=== PATIENT | male | born 1940 | race Caucasian/White ===

== ENCOUNTER → 2017-05-10 12:50 | Outpatient (POV) | payer MEDICARE, SELFPAY ==
[2017-05-10 13:21] VITALS: BP 106/89; PULSE 81; RESP 20; O2SAT 92; BMI 31.5
--- NOTE | 2017-05-10 13:34 | HMH.PAINSOAP ---
[facility] Pain Management SOAP Note Subjective:: patient is a pleasant 76-year-old white male who presents today to discuss his recent onset of stiffness. Patient has an intrathecal pain pump with Dilaudid 2 mg/mL concentration and going at 0.18 mg per day. Patient states his pain is well controlled and he is not having any increase in pain. Patient does state lately over the last month with the weather change he is noticed some more joint stiffness and muscle stiffness. He has not had physical therapy in a while. Patient is also on flomax for urinary hesitancy. Patient states that this is helping greatly we will continue to monitor this. It is also on alprazolam 1 mg 4 times daily. Patient states he takes 2 mg prior to bed and 2 mg in the morning. I discussed that this may be part of his difficulty getting up and moving around. ROS General: no recent weight change, no fever, no sleep disturbances Respiratory: no cough, no shortness of air, no recurring pulmonary infections Cardiovascular/Peripheral Vascular: No chest pain, No palpitations, no edema, no shortness of breath. Gastrointestinal: no incontinence, normal bowel movements reported Genitourinary: no incontinence Musculoskeletal: Back pain Psychiatric: normal mood/ affect Neurological: Patient does have numbness in his left hand due to neuropathy Objective:: Physical Exam General: Alert and oriented x3, no acute distress, pleasant and cooperative, [on room air] Lungs: Resps E/U, Symmetrical chest expansion, Musculoskeletal: Flexion and extension of lumbar spine somewhat guarded secondary to pain, deep tendon reflexes normal, strength in upper and lower extremities [5/5], [abnormal gait noted] Neurological: speech clear, blender laborer equal, no gross sensory deficits Assessment:: Degenerative disc disease lumbar spine with lumbar radiculopathy Plan:: We will plan on setting this patient up with physical therapy in the future for a home stretching regimen. We will not make any changes to his pump today. We discussed about the need to get up and move and stay active. We will give him diclofenac 75 mg 1 p.o. twice daily. He will continue his Flomax 0.8 mg daily. We are just scheduled to refill his pump on Wednesday. We will follow-up with him at that time. This note was dictated using voice recognition software and may contain errors or omissions
--- NOTE | 2017-05-10 13:37 | P.CONS_ITS ---
[facility] Pain Management SOAP Note Subjective:: patient is a pleasant 76-year-old white male who presents today to discuss his recent onset of stiffness. Patient has an intrathecal pain pump with Dilaudid 2 mg/mL concentration and going at 0.18 mg per day. Patient states his pain is well controlled and he is not having any increase in pain. Patient does state lately over the last month with the weather change he is noticed some more joint stiffness and muscle stiffness. He has not had physical therapy in a while. Patient is also on flomax for urinary hesitancy. Patient states that this is helping greatly we will continue to monitor this. It is also on alprazolam 1 mg 4 times daily. Patient states he takes 2 mg prior to bed and 2 mg in the morning. I discussed that this may be part of his difficulty getting up and moving around. ROS General: no recent weight change, no fever, no sleep disturbances Respiratory: no cough, no shortness of air, no recurring pulmonary infections Cardiovascular/Peripheral Vascular: No chest pain, No palpitations, no edema, no shortness of breath. Gastrointestinal: no incontinence, normal bowel movements reported Genitourinary: no incontinence Musculoskeletal: Back pain Psychiatric: normal mood/ affect Neurological: Patient does have numbness in his left hand due to neuropathy Objective:: Physical Exam General: Alert and oriented x3, no acute distress, pleasant and cooperative, [ on room air] Lungs: Resps E/U, Symmetrical chest expansion, Musculoskeletal: Flexion and extension of lumbar spine somewhat guarded secondary to pain, deep tendon reflexes normal, strength in upper and lower extremities [5/5], [abnormal gait noted] Neurological: speech clear, 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 We will not make any changes to his pump today. We discussed about the need to get up and move and stay active. We will give him diclofenac 75 mg 1 p.o. twice daily. He will continue his Flomax 0.8 mg daily. We are just scheduled to refill his pump on Wednesday. We will follow-up with him at that time. This note was dictated using voice recognition software and may contain errors or omissions
--- NOTE | 2017-05-10 15:18 | PC.PHONENOTE ---
called in Rx for flomax 0.4mg daily with 2 refills and dicolfenac 75mg BID with 1 refill to pt pharmacy per provider order
== END ==
PROVIDERS: Family Provider Internal Medicine Adolescent Medicine; PCP Internal Medicine Adolescent Medicine; Visit Provider Clinical Nurse Specialist Family Health
DX: M51.16 Intervertebral disc disorders with radiculopathy, lumbar region (principal)
CPT/HCPCS: 99212

== ENCOUNTER → 2017-05-14 09:53 | Day surgery (SDC) | payer MEDICARE, SELFPAY ==
[2017-05-14 10:06] VITALS: BP 145/1; PULSE 79; RESP 19; TEMP 36.6; O2SAT 94; BMI 37.6
--- NOTE | 2017-05-14 11:37 | HMH.PMPROC ---
- Procedure Date: 05/14/17 Time: 11:37 Anesthesiologist:: Tremayne Loyola MD Complications:: None Pre-procedure Diagnosis:: Degenerative disc disease of lumbar spine with lumbar radiculopathy symptoms Post-procedure Diagnosis:: Same Indications for Procedure:: This patient is a pleasant 76-year-old white male who we are treating for low back pain with lumbar radiculopathy symptoms. He has had some decrease mobility and muscle stiffness recently. He is currently on a intrathecal pump of Dilaudid 2 mg per male currently going at 0.18 mg per day. He is doing well with his pain control. We will refill his pump and continue him on Dilaudid at 0.18 mg per day. Procedure Details:: Informed consent was obtained and the risks and benefits of the procedure was explained to the patient. The patient was taken to the procedure room. The pump was interrogated. The area over the pump was prepped using ChloraPrep. The pump was accessed with a 22-gauge needle. Approximately 6 mL's of the intrathecal solution was withdrawn and discarded. The pump was then refilled with 20 mL's of intrathecal Dilaudid 2 mg/mL. The pump was interrogated and the infusion was increased to 0.2 mg per day. The patient tolerated the procedure well with no complication. Plan and Disposition:: We will follow-up with him at his next pump refill. If he has any problems or questions he is to call us in the pain clinic. He is to continue with his diclofenac and muscle relaxants.
[2017-05-14 11:41] VITALS: BP 148/95; PULSE 86; RESP 18; O2SAT 92
[2017-05-14 11:42] VITALS: BP 132/96
[2017-05-14 11:59] VITALS: BP 168/93; PULSE 79; RESP 18; TEMP 36.6; O2SAT 95
[2017-05-14 15:30] LABS: Amphetamine/Metha Screen,Urine Negative ng/mL (<1000); Barbiturates Screen,Urine Negative ng/mL (<200); Benzodiazepines Screen,Urine Positive ng/mL (200); Cannabinoid Screen,Urine Negative ng/mL (<50); Cocaine Screen,Urine Negative ng/g (<300); Methadone Screen,Urine Negative ng/mL (<300); Opiate Screen,Urine Negative ng/mL (<300); Phencyclidine Screen,Urine Negative ng/mL (<25)
[2017-05-20 11:50] LABS: Opiates Negative (Cutoff=100)
--- NOTE | 2017-07-13 14:39 | PC.PHONENOTE ---
07/12/17-called in Rx for Flomax 0.4mg daily with no refills per provider order. also ordered to refer pt to urology for ongoing urinary retention, hesitancy
--- NOTE | 2017-07-13 14:40 | PC.PHONENOTE ---
pt's called, requested to have urology consult put on hold d/t financial reasons. instructed pt's spouse to contact PCP for assessment of ongoing urinary hesitancy/retention since unable to see Urologist. Informed Mrs. Grover that this office would not prescribe Flomax after this month. understanding verbalized
== END ==
PROVIDERS: Family Provider Internal Medicine Adolescent Medicine; PCP Internal Medicine Adolescent Medicine; Visit Provider Anesthesiology
DX: M51.16 Intervertebral disc disorders with radiculopathy, lumbar region (principal)
CPT/HCPCS: 80305; 80361; 80365; 95991; G0480

== ENCOUNTER → 2017-11-26 10:48 | Outpatient (POV) | payer MEDICARE, SELFPAY ==
[2017-11-26 10:52] VITALS: BP 161/80; PULSE 84; RESP 18; O2SAT 93; BMI 393763.6
--- NOTE | 2017-11-26 11:32 | HMH.PMPROC ---
- Procedure Date: 11/26/17 Time: 11:32 Anesthesiologist:: Tremayne Loyola MD Complications:: None Pre-procedure Diagnosis:: Degenerative disc disease of lumbar spine with lumbar radiculopathy symptoms Post-procedure Diagnosis:: Same Indications for Procedure:: This patient is a pleasant 76-year-old white male who we are treating for low back pain with lumbar radiculopathy symptoms. He currently has an intrathecal Dilaudid pain pump 0.2 mg per day. He was doing well with his pump up until recently when he started to have some increased pain with the weather changes and increase activity. We will increase his intrathecal Dilaudid infusion today. He does have an antalgic gait. Motor strength of lower extremities is 5/5. There is no gross sensory deficit. Procedure Details:: Intrathecal pain pump interrogation and adjustment Informed consent was obtained and the risk and benefits of the procedure was explained to the patient. Patient was taken to the procedure room. The pump was interrogated. Intrathecal Dilaudid infusion was increased to 0.3 mg per day from 0.2 mg per day. Patient tolerated the procedure well with no complications. Plan and Disposition:: We will follow-up with this patient at his next pump refill. This is scheduled next month. If he has any problems or questions she is to call us in the pain clinic
== END ==
PROVIDERS: Family Provider Internal Medicine Adolescent Medicine; PCP Internal Medicine Adolescent Medicine; Visit Provider Anesthesiology
DX: M51.16 Intervertebral disc disorders with radiculopathy, lumbar region (principal)
CPT/HCPCS: 62368

== ENCOUNTER → 2018-04-26 09:58 | Outpatient (CLI) | payer MEDICARE, SELFPAY ==
[2018-04-26 10:29] LABS: Blood Urea Nitrogen 19 mg/dL (7-18); Creatinine,Serum 1.05 mg/dL (0.70-1.30); Estimated Glomerular Filt Rate 68 ml/min (>60); GFR (African American) 83 ML/MIN (>60)
--- NOTE | 2018-04-26 10:30 | CT_ITS ---
CT head/brain wo con HISTORY: Comminuted impairment, dementia, confusion, altered mental status, ITS.REASON: COGNITIVE IMPAIRMENT ORDERING PHYSICIAN: Sam Jimenez MD PATIENT AGE: 77 years COMPARISON: None TECHNIQUE: Axial images obtained without contrast. Brain and bone windows reviewed. All CT scans at the facility use one or more dose reduction, viz: automated exposure control, ma/kV adjustment per patient size (including targeted exams where dose is matched to indication, i.e. head), or iterative reconstruction technique. FINDINGS: No midline shift, mass effect, intracranial hemorrhage, hydrocephalus, or extra-axial fluid collection is evident. There are involutional changes of age with mild atrophy and mild periventricular ischemic gliotic change.The calvarium has an unremarkable appearance. No mastoid effusion. No sinus air-fluid levels.. Mild mucosal thickening involves the frontal sinuses IMPRESSION: Negative unenhanced CT head, no acute intracranial findings
== END ==
PROVIDERS: Visit Provider Internal Medicine Adolescent Medicine
DX: R41.89 Other symptoms and signs involving cognitive functions and awareness (principal)
CPT/HCPCS: 36415; 70450; 82565; 84520

== ENCOUNTER → 2018-05-06 13:28 | Outpatient (CLI) | payer MEDICARE, SELFPAY ==
[2018-05-06 14:04] LABS: Basophils # 0.1 K/mm3 (0-0.2); Basophils % 0.6 % (0.1-2.0); Eosinophils # 0.2 K/mm3 (0.0-0.4); Eosinophils % 2.5 % (0.1-12.0); Hematocrit 42.1 % (42.0-52.0); Lymphocytes # 2.9 K/mm3 (0.7-4.5); Lymphocytes % 36.4 % (10-50); Mean Corpuscular HGB Conc 33.4 g/dL (31.8-35.4); Mean Platelet Volume 7.4 fl (7.4-10.4); Monocytes # 0.5 K/mm3 (0.1-1.0); Monocytes % 6.6 % (1.7-9.3); Neutrophils # 4.3 K/mm3 (1.8-7.8); Neutrophils % 53.9 % (37.0-80.0); Platelet Count 236 K/mm3 (142-424); Red Blood Count 4.67 M/mm3 (4.60-6.20); Red Cell Distribution Width 13.4 % (11.5-17.5)
[2018-05-06 14:53] LABS: Alanine Aminotransferase 48 U/L (12-78); Albumin Level 3.6 gm/dL (3.4-5.0); Alkaline Phosphatase 95 U/L (46-116); Anion Gap 14.4 mEq/L (5-15); Aspartate Amino Transferase 36 U/L (15-37); Bilirubin,Total 0.3 mg/dL (0.2-1.0); Blood Urea Nitrogen 19 mg/dL (7-18); Calcium 9.4 mg/dL (8.5-10.1); Carbon Dioxide 30 mmol/L (21.0-32.0); Chloride 101 mmol/L (98-107); Creatinine,Serum 1.01 mg/dL (0.70-1.30); Estimated Glomerular Filt Rate 72 ml/min (>60); GFR (African American) 87 ML/MIN (>60); Globulin 3.6 gm/dl (1.3-3.2); Glucose 112 mg/dL (74-106); Potassium 4.4 mmoL/L (3.5-5.1); Sodium 141 mmol/L (136-145); Thyroid Stimulating Hormone 8.03 uIU/ml (0.358-3.740); Total Protein,Serum 7.2 gm/dL (6.4-8.2)
[2018-05-10 09:53] LABS: Rapid Plasma Reagin Ab Titer Non Reactive (NonRea<1:1); Vitamin B12 242 pg/mL (232-1245)
== END ==
PROVIDERS: Visit Provider Internal Medicine Adolescent Medicine
DX: R41.89 Other symptoms and signs involving cognitive functions and awareness (principal); Z79.899 Other long term (current) drug therapy
CPT/HCPCS: 36415; 80053; 82607; 84443; 85025; 86592

== ENCOUNTER 2019-09-05 13:01 | Day surgery (SDC) | payer MEDICARE, SELFPAY ==
[2019-09-05 13:22] VITALS: BP 154/89; PULSE 97; RESP 18; TEMP 36.4; O2SAT 96; BMI 46.2
--- NOTE | 2019-09-05 13:39 | HMH.PMPROC ---
- Procedure Date: 09/05/19 Time: 13:39 Anesthesiologist:: Lisa Jose APRN Complications:: None Pre-procedure Diagnosis:: Degenerative disc disease lumbar spine with lumbar radiculopathy Post-procedure Diagnosis:: Same Indications for Procedure:: Patient is a pleasant 78-year-old white male who presents today for intrathecal pain pump refill and reprogram. He is currently on an intrathecal infusion of 0.44 mg/day of Dilaudid. Patient [facility] #[id number] reviewed and appropriate. Patient rates his pain today 5 out of 10. Mostly in his back and legs. 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 The patient was taken to the procedure room where noninvasive monitoring was placed including noninvasive blood pressure cuff and pulse oximeter. Patient's pump was interrogated. The area over the pump was cleansed with chlorhexidine as a cleansing solution. In sterile fashion the pump was accessed with a 22-gauge needle. Approximately 9 mL's were removed of the pump solution and discarded appropriately. The pump was then refilled with 20 mL's of Dilaudid 5 mg/mL. The needle was withdrawn and a bandage was placed over the puncture site. The infusion rate was reprogrammed to continue at 0.44 mg/day. The patient tolerated the procedure well. Plan and Disposition:: I will see the patient at his next physical pain pump refill and reprogram he has been instructed to call the office if he has any issues prior to his next appointment. Dr. Loyola has reviewed this note and agrees with this plan of care. This note was dictated using voice recognition software and may contain errors or omissions
[2019-09-05 13:42] VITALS: BP 142/89; PULSE 68; RESP 18; O2SAT 96
[2019-09-05 13:43] VITALS: BP 145/89; PULSE 70; RESP 18; O2SAT 98
[2019-09-05 14:00] VITALS: BP 138/75; PULSE 67; RESP 20; O2SAT 96
== END 2019-09-05 14:01 | disposition home or self-care (01) ==
LOC: SC.PAINP 13:03
PROVIDERS: PCP Internal Medicine Adolescent Medicine; Visit Provider Clinical Nurse Specialist Family Health
DX: M51.16 Intervertebral disc disorders with radiculopathy, lumbar region (principal)
CPT/HCPCS: 95991

== ENCOUNTER 2020-01-08 13:19 | Day surgery (SDC) | payer MEDICARE, SELFPAY ==
[2020-01-08 13:49] VITALS: BP 147/63; PULSE 69; RESP 18; TEMP 36.7; O2SAT 95; BMI 47.0
[2020-01-08 14:06] VITALS: BP 172/84; PULSE 68; RESP 18; O2SAT 98
[2020-01-08 14:08] VITALS: BP 172/88; PULSE 68; RESP 18; O2SAT 92
--- NOTE | 2020-01-08 14:17 | P.PCN_ITS ---
- Procedure Date: 01/08/20 Time: 14:17 Anesthesiologist:: Lisa Jose APRN Complications:: None Pre-procedure Diagnosis:: Degenerative disc disease lumbar spine lumbar radiculopathy Post-procedure Diagnosis:: Same Indications for Procedure:: Patient is a pleasant 79-year-old white male who presents today for intrathecal pain pump refill and reprogram. Patient overall doing well rating his pain today a 4 out of 10. Patient states he has some increased pain with the weather change. But overall his pain is typically a 2 out of 10. Patient would like a slight increase of his intrathecal infusion of 0.44 mg of Dilaudid a day. He denies side effects to his medication. Isidro and drug screens reviewed. Physical Exam General: Alert and oriented x3, no acute distress, pleasant and cooperative, [on room air] Lungs: Resps E/U, Symmetrical chest expansion, Eyes: PERRL Musculoskeletal: Flexion and extension of lumbar spine somewhat guarded secondary to pain, deep tendon reflexes normal, strength in upper and lower extremities [5/5], [abnormal gait noted] Neurological: speech clear, dictating machine transcriber equal, no gross sensory deficits Procedure Details:: Informed consent was obtained and the risk and benefits of the procedure were explained to the patient. The patient was taken to the procedure room where noninvasive monitoring was placed including noninvasive blood pressure cuff and pulse oximeter. Patient's pump was interrogated. The area over the pump was cleansed with chlorhexidine as a cleansing solution. In sterile fashion the pump was accessed with a 22-gauge needle. Approximately 9 mL's were removed of the pump solution and discarded appropriately. The pump was then refilled with 20 mL's of Dilaudid 5 mg/mL. The needle was withdrawn and a bandage was placed over the puncture site. The infusion rate was reprogrammed to 0.48 mg/day. The patient tolerated the procedure well. Plan and Disposition:: I will follow-up with the patient at his next intrathecal pain pump refill and reprogram he has been instructed to call the office if he has any issues prior to his next appointment. Dr. Loyola has reviewed this note and agrees with this plan of care. This note was dictated using voice recognition software and may contain errors or omissions
[2020-01-08 14:30] VITALS: BP 149/72; PULSE 63; RESP 18; O2SAT 95
== END 2020-01-08 14:30 | disposition home or self-care (01) ==
PROVIDERS: PCP Internal Medicine Adolescent Medicine; Visit Provider Clinical Nurse Specialist Family Health
DX: M51.16 Intervertebral disc disorders with radiculopathy, lumbar region (principal); Z45.1 Encounter for adjustment and management of infusion pump; E78.5 Hyperlipidemia, unspecified; I10 Essential (primary) hypertension; J45.909 Unspecified asthma, uncomplicated; K21.9 Gastro-esophageal reflux disease without esophagitis; F41.9 Anxiety disorder, unspecified; F32.9 Major depressive disorder, single episode, unspecified; F03.90 Unspecified dementia, unspecified severity, without behavioral disturbance, psychotic disturbance, mood disturbance, and anxiety; Z96.659 Presence of unspecified artificial knee joint; Z88.8 Allergy status to other drugs, medicaments and biological substances; Z79.899 Other long term (current) drug therapy
CPT/HCPCS: 62370

== ENCOUNTER → 2020-04-24 12:35 | Outpatient (CLI) | payer MEDICARE, SELFPAY ==
[2020-04-24 13:10] LABS: Basophils # 0.1 K/mm3 (0-0.2); Basophils % 0.8 % (0.1-2.0); Eosinophils # 0.3 K/mm3 (0.0-0.4); Eosinophils % 3.2 % (0.1-12.0); Hematocrit 48.3 % (42.0-52.0); Hemoglobin 15.6 g/dL (14.1-18.0); Lymphocytes # 2.7 K/mm3 (0.7-4.5); Lymphocytes % 31.5 % (10-50); Mean Corpuscular HGB Conc 32.3 g/dL (31.8-35.4); Mean Corpuscular Hemoglobin 30.3 pg (27.0-31.2); Mean Corpuscular Volume 93.9 fl (80-94); Mean Platelet Volume 8.2 fl (7.4-10.4); Monocytes # 0.4 K/mm3 (0.1-1.0); Monocytes % 5.2 % (1.7-9.3); Neutrophils % 59.3 % (37.0-80.0); Platelet Count 252 K/mm3 (142-424); Red Blood Count 5.14 M/mm3 (4.60-6.20); Red Cell Distribution Width 14.7 % (11.5-17.5); White Blood Count 8.4 K/mm3 (4.8-10.8)
[2020-04-24 13:19] LABS: Hemoglobin A1C 6.5 % (4.0-6.0)
[2020-04-24 13:32] LABS: Chloride 104 mmol/L (98-107); Sodium 140 mmol/L (136-145)
[2020-04-24 13:33] LABS: Potassium 4.6 mmoL/L (3.5-5.1)
[2020-04-24 13:35] LABS: Alanine Aminotransferase 19 U/L (12-78); Albumin Level 4.1 g/dl (3.5-5.0); Albumin/Globulin Ratio 1.2 (1.1-1.8); Alkaline Phosphatase 104 U/L (38-126); Anion Gap 11.6 mEq/L (5-15); Aspartate Amino Transferase 27 U/L (17-59); Bilirubin,Total 0.4 mg/dl (0.2-1.3); Blood Urea Nitrogen 21 mg/dl (9-20); Carbon Dioxide 29 mmol/L (22.0-30.0); Cholesterol 191 mg/dl (140-200); Estimated Glomerular Filt Rate 72 ml/min (>60); GFR (African American) 87 ML/MIN (>60); Globulin 3.4 g/dL (1.3-3.2); Total Protein,Serum 7.5 g/dl (6.3-8.2); Triglycerides 268 mg/dl (30-150); VLDL Cholesterol 54 mg/dL (0-40)
[2020-04-24 13:36] LABS: Calcium 9.4 mg/dl (8.4-10.2); Glucose 138 mg/dl (74-100); HDL Cholesterol 32 mg/dl (40-60)
[2020-04-24 13:47] LABS: Direct LDL Cholesterol 122.49 mg/dL (100-129)
[2020-04-24 14:09] LABS: Thyroid Stimulating Hormone 8.44 uIU/mL (0.465-4.68)
== END ==
PROVIDERS: Visit Provider Internal Medicine Adolescent Medicine
DX: E78.5 Hyperlipidemia, unspecified (principal); E03.9 Hypothyroidism, unspecified; G60.9 Hereditary and idiopathic neuropathy, unspecified; R73.9 Hyperglycemia, unspecified
CPT/HCPCS: 36415; 80053; 80061; 83036; 84443; 85025

== ENCOUNTER 2020-06-17 13:02 | Day surgery (SDC) | payer MEDICARE, SELFPAY ==
[2020-06-17 13:05] VITALS: BP 150/85; PULSE 72; RESP 18; TEMP 35.9; O2SAT 91; BMI 47.0
[2020-06-17 13:26] VITALS: BP 157/89; PULSE 74; RESP 18
[2020-06-17 13:32] VITALS: BP 160/88; PULSE 78; RESP 18; O2SAT 95
--- NOTE | 2020-06-17 13:36 | P.PCN_ITS ---
- Procedure Date: 06/17/20 Time: 13:37 Anesthesiologist:: Lisa Jose APRN Complications:: None Pre-procedure Diagnosis:: Degenerative disc disease lumbar spine lumbar radiculopathy Post-procedure Diagnosis:: Same Indications for Procedure:: Patient is a pleasant 79-year-old white male who presents today for intrathecal pain pump refill and reprogram. He rates his pain a 4 out of 10 overall doing well. Patient does not need any changes to his current infusion of 0.48 mg of Dilaudid a day. Patient denies any side effects. [facility] #[id number] reviewed and appropriate. Procedure Details:: Informed consent was obtained and the risk and benefits of the procedure were explained to the patient. The patient was taken to the procedure room where noninvasive monitoring was placed including noninvasive blood pressure cuff and pulse oximeter. Patient's pump was interrogated. The area over the pump was cleansed with chlorhexidine as a cleansing solution. In sterile fashion the pump was accessed with a 22-gauge needle. Approximately 5 mL's were removed of the pump solution and discarded appropriately. The pump was then refilled with 20 mL's of Dilaudid 5 mg/mL. The needle was withdrawn and a bandage was placed over the puncture site. The infusion rate was reprogrammed to continue at 0.48 mg/day. The patient tolerated the procedure well. Plan and Disposition:: I will see the the patient back at his next intrathecal pain pump refill and reprogram he has been instructed to call the office if he has any issues prior to his next appointment. Dr. Loyola has reviewed this note and agrees with this plan of care. This note was dictated using voice recognition software and may contain errors or omissions
[2020-06-17 13:55] VITALS: BP 140/72; PULSE 18; PULSE 69; O2SAT 92
== END 2020-06-17 13:55 | disposition home or self-care (01) ==
LOC: SC.PAINP 13:04
PROVIDERS: PCP Internal Medicine Adolescent Medicine; Visit Provider Clinical Nurse Specialist Family Health
DX: M51.16 Intervertebral disc disorders with radiculopathy, lumbar region (principal); Z45.1 Encounter for adjustment and management of infusion pump; I10 Essential (primary) hypertension; J45.909 Unspecified asthma, uncomplicated; N40.0 Benign prostatic hyperplasia without lower urinary tract symptoms; K21.9 Gastro-esophageal reflux disease without esophagitis; F41.9 Anxiety disorder, unspecified; F32.9 Major depressive disorder, single episode, unspecified; F03.90 Unspecified dementia, unspecified severity, without behavioral disturbance, psychotic disturbance, mood disturbance, and anxiety; Z88.6 Allergy status to analgesic agent; Z88.8 Allergy status to other drugs, medicaments and biological substances; Z79.899 Other long term (current) drug therapy
CPT/HCPCS: 95991

== ENCOUNTER 2020-10-14 13:14 | Day surgery (SDC) | payer MEDICARE, SELFPAY ==
[2020-10-14 13:17] VITALS: BP 165/84; PULSE 70; RESP 18; TEMP 36.7; O2SAT 96; BMI 47.0
[2020-10-14 13:41] VITALS: BP 174/85; PULSE 65; RESP 18; O2SAT 94
[2020-10-14 13:44] VITALS: PULSE 74; RESP 18; O2SAT 97
--- NOTE | 2020-10-14 14:17 | HMH.PMPROC ---
- Procedure Date: 10/14/20 Time: 14:17 Anesthesiologist:: Nicole Acevedo APRN Complications:: None Pre-procedure Diagnosis:: Degenerative disc disease lumbar spine with lumbar radiculopathy symptoms Post-procedure Diagnosis:: Same Indications for Procedure:: Patient is a pleasant 79-year-old male who presents today for intrathecal pain pump refill and reprogram he is being treated for degenerative disc disease lumbar spine with lumbar radiculopathy symptoms. Patient is currently on Dilaudid at 0.48 mg/day with no side effects. Patient does have a history of dementia and is unable to verify medications or other pertinent information. Patient's Isidro and drug screens have been appropriate. His pain is a 4 out of 10. He does not need any changes at this time. 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 The patient was taken to the procedure room where noninvasive monitoring was placed including noninvasive blood pressure cuff and pulse oximeter. Patient was placed prone position fluoroscopy was used to access the pump site patient's pump was interrogated. The area over the pump was cleansed with chlorhexidine as a cleansing solution. In sterile fashion the pump was accessed with a 22-gauge needle. Approximately 10 mls of the pump solution was removed and discarded appropriately. The pump was then refilled with 20 mL's of Dilaudid 5 mg/mL. The needle was withdrawn and a bandage was placed over the puncture site. The infusion rate was reprogrammed at Dilaudid 0.48 mg/day. The patient tolerated well with no complication. Plan and Disposition:: We will see the patient back at the next refill. If the patient has any questions, contact the clinic. Patient has been instructed to contact the clinic with any concerns before the next appointment. Dr. Loyola has reviewed this note and agrees with this plan of care. This note was dictated using voice recognition software and make contain errors or omissions.
[2020-10-14 14:37] VITALS: BP 126/72; PULSE 70; RESP 20; O2SAT 96
== END 2020-10-14 14:38 | disposition home or self-care (01) ==
LOC: SC.PAINP 13:14
PROVIDERS: PCP Internal Medicine Adolescent Medicine; Visit Provider Clinical Nurse Specialist Family Health
DX: M51.16 Intervertebral disc disorders with radiculopathy, lumbar region (principal); Z45.1 Encounter for adjustment and management of infusion pump
CPT/HCPCS: 76000; 95991

== ENCOUNTER → 2020-11-13 12:39 | Outpatient (CLI) | payer MEDICARE, SELFPAY ==
[2020-11-13 13:26] LABS: Basophils # 0.1 K/mm3 (0-0.2); Basophils % 0.6 % (0.1-2.0); Eosinophils # 0.3 K/mm3 (0.0-0.4); Eosinophils % 2.8 % (0.1-12.0); Hematocrit 45.1 % (42.0-52.0); Hemoglobin 14.8 g/dL (14.1-18.0); Lymphocytes # 2.8 K/mm3 (0.7-4.5); Lymphocytes % 31.3 % (10-50); Mean Corpuscular HGB Conc 32.7 g/dL (31.8-35.4); Mean Corpuscular Hemoglobin 30.4 pg (27.0-31.2); Mean Corpuscular Volume 92.8 fl (80-94); Mean Platelet Volume 8.3 fl (7.4-10.4); Monocytes # 0.4 K/mm3 (0.1-1.0); Monocytes % 4.5 % (1.7-9.3); Neutrophils # 5.4 K/mm3 (1.8-7.8); Neutrophils % 60.7 % (37.0-80.0); Platelet Count 291 K/mm3 (142-424); Red Blood Count 4.87 M/mm3 (4.60-6.20); Red Cell Distribution Width 13.6 % (11.5-17.5); White Blood Count 8.9 K/mm3 (4.8-10.8)
[2020-11-13 14:26] LABS: Alanine Aminotransferase 18 U/L (12-78); Albumin Level 4.2 g/dl (3.5-5.0); Albumin/Globulin Ratio 1.4 (1.1-1.8); Alkaline Phosphatase 92 U/L (38-126); Anion Gap 14.5 mEq/L (5-15); Aspartate Amino Transferase 25 U/L (17-59); Bilirubin,Total 0.5 mg/dl (0.2-1.3); Blood Urea Nitrogen 17 mg/dl (9-20); Calcium 9.2 mg/dl (8.4-10.2); Carbon Dioxide 29 mmol/L (22.0-30.0); Chloride 99 mmol/L (98-107); Chol/HDL Ratio 6.2 (1-3.5); Cholesterol 204 mg/dl (140-200); Estimated Glomerular Filt Rate 93 ml/min (>60); GFR (African American) 113 ML/MIN (>60); Globulin 3.1 g/dL (1.3-3.2); Glucose 109 mg/dl (74-100); HDL Cholesterol 33 mg/dl (40-60); Potassium 4.5 mmoL/L (3.5-5.1); Sodium 138 mmol/L (136-145); Total Protein,Serum 7.3 g/dl (6.3-8.2); Triglycerides 260 mg/dl (30-150); VLDL Cholesterol 52 mg/dL (0-40)
[2020-11-13 14:37] LABS: Direct LDL Cholesterol 119.64 mg/dL (100-129)
== END ==
PROVIDERS: Visit Provider Internal Medicine Adolescent Medicine
DX: G60.9 Hereditary and idiopathic neuropathy, unspecified (principal); E03.9 Hypothyroidism, unspecified; E78.5 Hyperlipidemia, unspecified
CPT/HCPCS: 36415; 80053; 80061; 84443; 85025

== ENCOUNTER 2021-02-04 13:05 | Day surgery (SDC) | payer MEDICARE, SELFPAY ==
[2021-02-04 13:13] VITALS: BP 136/69; PULSE 72; RESP 18; TEMP 36.3; O2SAT 90; BMI 47.0
--- NOTE | 2021-02-04 13:25 | HMH.PMPROC ---
- Procedure Date: 02/04/21 Time: 13:25 Anesthesiologist:: Nicole Acevedo APRN Complications:: None Pre-procedure Diagnosis:: Degenerative disc disease lumbar spine with lumbar radiculopathy symptoms Post-procedure Diagnosis:: Same Indications for Procedure:: Patient is an 80-year-old white male who presents today for intrathecal pain pump refill and reprogram. She is complaining of bilateral shoulder pain today with inability to raise arms above head. He says he cannot lift any objects without having significant pain in the shoulders. Is also complaining of bilateral knee pain as well as sloughing of skin bilateral lower extremities. She has not seen any providers regarding sloughing of skin. He would like a dermatology referral we will get him referred for bilateral lower extremity dermatitis. We will also order x-rays bilateral shoulders. He is currently on Dilaudid on 0.48 mg/day and denies any side effects. He would like an increase today. He says weather has worsened his pain. He rates his pain a 6 out of 10. He was also started on a CPAP recently and says that the he has had difficulty using CPAP. Physical exam General: Alert and oriented x3, no acute distress, pleasant and cooperative Lungs: Respirations even and unlabored, symmetrical chest expansion Eyes: PERRL Musculoskeletal: Flexion and extension of lumbar and cervical [spine] somewhat guarded secondary to pain, [antalgic gait noted] Neurological: Speech clear, no gross sensory deficit Procedure Details:: Informed consent was obtained and the risk and benefits of the procedure were explained to the patient. The patient was taken to the procedure room where noninvasive monitoring was placed including noninvasive blood pressure cuff and pulse oximeter. Patient's pump was interrogated. The area over the pump was cleansed with chlorhexidine as a cleansing solution. In sterile fashion the pump was accessed with a 22-gauge needle. Approximately 5 mls of the pump solution was removed and discarded appropriately. The pump was then refilled with 20 mL's of Dilaudid 5 mg per male. The needle was withdrawn and a bandage was placed over the puncture site. The infusion rate was reprogrammed at increased to Dilaudid at 0.52mg/day. The patient tolerated well with no complication. Plan and Disposition:: We will order x-rays of patient's bilateral shoulders due to worsening pain and decreased mobility. We will also get the patient a dermatology consult per request for dermatitis bilateral lower extremities. Risks and benefits of the medication have been explained in detail to the patient. The patient does understand the risk of dependence on the medication when given over a prolonged period. Patient has been advised of risks of oversedation with the prescribed medication. Narcan has been offered to the paitent in the event of oversedation. Patient has been advised that a family member should also be educated regarding administration of Narcan. The patient has been advised to consult with his/her primary care provider and pharmacist regarding drug-drug interaction of medications currently prescribed. Patient has been prescribed a controlled substance after being counseled on the medication, medication safety, and possible side effects. [facility]OTT report has been obtained and reviewed prior to prescription and found to be appropriate. Opioid contract was reviewed and signed by the patient, and that they have agreed to all of the terms set forth by our compliance program. Patient has been instructed to contact the clinic with any concerns before the next appointment. Dr. Loyola has reviewed this note and agrees with this plan of care. This note was dictated using voice recognition software and make contain errors or omissions.
[2021-02-04 13:30] VITALS: BP 166/69; PULSE 74; PULSE 79; RESP 18; O2SAT 90
[2021-02-04 13:47] VITALS: BP 139/70; PULSE 71; RESP 20; O2SAT 90
--- NOTE | 2021-02-04 14:22 | XR_ITS ---
PROCEDURE: XR SHOULDER LT MIN 2V CLINICAL INDICATION: ETHEL SHOULDR PAIN COMPARISON: No exams were available for comparison FINDINGS: No fracture or dislocation. No lytic or blastic change. There is normal mineralization. Mild osteoarthritic change acromioclavicular joint and glenohumeral joint. Small sub cortical cyst just medial to the base of the greater tuberosity. Subacromial stenosis. Other findings:None. IMPRESSION: Osteoarthritic changes with subacromial stenosis Dictated by: Madhu Hendrickson MD 02/05/2021 07:54 Madhu Hendrickson MD in [place] 02/05/2021 07:54
--- NOTE | 2021-02-04 14:22 | XR_ITS ---
PROCEDURE: XR SHOULDER RT MIN 2V CLINICAL INDICATION: ETHEL SHOULDER PAIN COMPARISON: No exams were available for comparison FINDINGS: No fracture or dislocation. No lytic or blastic change. There is normal mineralization. Osteoarthritic change acromioclavicular joint with small osteophytes at the AC joint with hypertrophic changes are present along the inferior aspect the acromion with subacromial stenosis. Other findings:None. Mild osteoarthritic changes of the glenohumeral joint. Cortical irregularity at the greater tuberosity which may be seen with rotator cuff disease. IMPRESSION: Osteoarthritic change AC joint and glenohumeral joint with subacromial stenosis Dictated by: Madhu Hendrickson MD 02/05/2021 07:56 Madhu Hendrickson MD in [facility] 02/05/2021 07:56
== END 2021-02-04 13:48 | disposition home or self-care (01) ==
LOC: SC.PAINP 13:07
PROVIDERS: PCP Internal Medicine Adolescent Medicine; Visit Provider Clinical Nurse Specialist Family Health
DX: M51.16 Intervertebral disc disorders with radiculopathy, lumbar region (principal); M25.511 Pain in right shoulder; M25.512 Pain in left shoulder
CPT/HCPCS: 73030; 99212; G0463

== ENCOUNTER 2021-06-02 13:10 | Day surgery (SDC) | payer MEDICARE, SELFPAY ==
[2021-06-02 13:05] VITALS: BP 165/87; PULSE 74; RESP 20; TEMP 36.5; O2SAT 93; BMI 47.0
[2021-06-02 13:11] VITALS: BP 178/98; BP 180/98; PULSE 70; PULSE 76; RESP 20; O2SAT 98; O2SAT 99
[2021-06-02 13:20] VITALS: BP 154/81; PULSE 70; RESP 20; O2SAT 91
--- NOTE | 2021-06-02 13:23 | HMH.PMPROC ---
- Procedure Date: 06/02/21 Time: 13:37 Anesthesiologist:: Nitin Vital CRNA Complications:: None Pre-procedure Diagnosis:: Disc disease lumbar spine multilevels. Lumbar radiculopathy symptoms. Post-procedure Diagnosis:: Same Indications for Procedure:: Patient is a pleasant 80-year-old white male who presents today for intrathecal pain pump refill and reprogram. Patient is without complaint regarding cervical or lumbar back pain. Patient is currently on Dilaudid 0.52 mg/day. He denies any side effects. Procedure Details:: Details of the procedure were explained to the patient. Informed consent was obtained. Risk and benefits discussed. Patient was taken the procedure room placed in the sitting position on the fluoroscopy table. The area over the intrathecal pump was cleaned using chlorhexidine as a cleansing solution. The was accessed using a 22-gauge needle. 7.2 L was withdrawn and discarded appropriately. The pump was then filled with 20 mL of Dilaudid 5 mg/mL. The needle was withdrawn. Rate was continued at 0.52 mill grams per day. Band-Aid applied. Patient tolerated procedure without difficulty. There were no complications. Plan and Disposition:: Patient will return in 3 months for additional refill.
== END 2021-06-02 13:22 | disposition home or self-care (01) ==
LOC: SC.PAINP 13:11
PROVIDERS: PCP Internal Medicine Adolescent Medicine; Visit Provider Nurse Anesthetist, Certified Registered
DX: M51.16 Intervertebral disc disorders with radiculopathy, lumbar region (principal); Z45.1 Encounter for adjustment and management of infusion pump
CPT/HCPCS: 95991

== ENCOUNTER 2021-09-15 13:03 | Day surgery (SDC) | payer MEDICARE, SELFPAY ==
[2021-09-15 13:19] VITALS: BP 160/80; PULSE 75; RESP 18; TEMP 36.3; O2SAT 92; BMI 43.5
[2021-09-15 13:24] VITALS: BP 185/99; PULSE 85; RESP 20; O2SAT 96
[2021-09-15 13:46] VITALS: BP 161/79; PULSE 72; RESP 20; O2SAT 94
--- NOTE | 2021-09-15 14:06 | HMH.PMPROC ---
- Procedure Date: 09/15/21 Time: 14:06 Anesthesiologist:: ROSANNE Haq Complications:: None Pre-procedure Diagnosis:: Degenerative disc disease of lumbar spine with lumbar radiculopathy symptoms Post-procedure Diagnosis:: Same Indications for Procedure:: Patient is a pleasant 80-year-old male who presents today for intrathecal pain pump refill and reprogram. The patient is being treated for degenerative disease of lumbar spine with lumbar radiculopathy symptoms. Patient is currently being managed with intrathecal Dilaudid 5 mg/mL at a rate of 0.52 mg/day. Patient denies any side effects from this medication. Patient rates pain a 0 out of 10. Drug screen is appropriate. Isidro [id number] with an active morphine equivalent of 0 has been reviewed and is appropriate. Physical exam General: Alert and oriented x3, no acute distress, pleasant and cooperative Lungs: Respirations even and unlabored, symmetrical chest expansion Eyes: PERRL Musculoskeletal: Flexion and extension of lumbar [spine] somewhat guarded secondary to pain, [antalgic gait noted] Neurological: Speech clear, no gross sensory deficit Procedure Details:: Informed consent was obtained and the risk and benefits of the procedure were explained to the patient. The patient was taken to the procedure room where noninvasive monitoring was placed including noninvasive blood pressure cuff and pulse oximeter. Patient's pump was interrogated. The area over the pump was cleansed with chlorhexidine as a cleansing solution. [Fluoroscopy was used to access the pump]. In sterile fashion the pump was accessed with a 22-gauge needle. Approximately 7 mls of the pump solution was removed and discarded appropriately. The pump was then refilled with 20 mL's of Dilaudid 5 mg/mL. The needle was withdrawn and a bandage was placed over the puncture site. The infusion rate was reprogrammed and continued of Dilaudid 0.52 mg/day. The patient tolerated well with no complication. Plan and Disposition:: During the procedure, patient's blood pressure was elevated around 180s. Patient will follow-up with Dr. vAina in regards to this. We will see the patient back in the clinic at the next intrathecal refill. Patient has been instructed to contact the clinic with any concerns before the next appointment. Dr. Loyola has reviewed this note and agrees with this plan of care. This note was dictated using voice recognition software and make contain errors or omissions.
== END 2021-09-15 13:47 | disposition home or self-care (01) ==
LOC: SC.PAINP 13:06
PROVIDERS: PCP Internal Medicine Adolescent Medicine; Visit Provider Student in an Organized Health Care Education/Training Program
DX: M51.16 Intervertebral disc disorders with radiculopathy, lumbar region (principal)
CPT/HCPCS: 62370

== ENCOUNTER 2021-12-16 12:24 | Day surgery (SDC) | payer MEDICARE, SELFPAY ==
[2021-12-16 12:43] VITALS: BP 143/60; PULSE 81; RESP 18; TEMP 36.3; O2SAT 93; BMI 47.0
[2021-12-16 12:56] VITALS: BP 197/99; PULSE 85; O2SAT 97
[2021-12-16 12:59] VITALS: BP 197/99; PULSE 85; RESP 18; O2SAT 97
--- NOTE | 2021-12-16 13:10 | EXP.PAIN.PRO ---
Procedure Date: 12/16/21 Time: 13:00 Anesthesiologist:: Nitin Vital CRNA Complications:: None Pre-procedure Diagnosis:: Degenerative disc disease of lumbar spine with lumbar radiculopathy symptoms Post-procedure Diagnosis:: Same Indications for Procedure:: Patient is a pleasant 81-year-old male who presents today for intrathecal pain pump refill and reprogram. We are currently treating the patient for degenerative disc disease of lumbar spine with lumbar radiculopathy symptoms. We are currently managing him with intrathecal Dilaudid 5 mg/mL at a rate of 0.52 mg/day. Patient denies any side effects of this medication. He states this medication is adequately helping manage his pain. Today he rates his pain a 6 out of 10. He states the pain is primarily in his low back. He denies any new trauma or injury. Physical exam General: Alert and oriented x3, no acute distress, pleasant and cooperative Lungs: Respirations even and unlabored, symmetrical chest expansion Eyes: PERRL musculoskeletal: Flexion and extension of lumbar spine somewhat guarded secondary to pain, antalgic gait noted Neurological: Speech clear, no gross sensory deficit Procedure Details:: Informed consent was obtained and the risk and benefits of the procedure were explained to the patient. The patient was taken to the procedure room where noninvasive monitoring was placed including a noninvasive blood pressure cuff and pulse oximeter. Patient's pump was interrogated. The area over the pump was cleansed with a chlorhexidine as a cleansing solution. In sterile fashion the pump was accessed using a 22-gauge needle. Approximately 11.2 mL of solution was removed and discarded appropriately. The pump was then refilled with 20 mL of Dilaudid 5 mg/mL. The needle was withdrawn and a bandage placed over the puncture site. Infusion rate was reprogrammed and continued at Dilaudid 0.52 mg/day. Patient tolerated well with no complications. Plan and Disposition:: Patient was monitored for short period of time following this procedure and left neurologically intact. We will see the patient back at the next intrathecal pump refill date. Patient has been instructed to contact the clinic with any concerns before the next appointment. Dr. Loyola is reviewed this note and agrees with this plan of care. This note was dictated using voice recognition software and may contain errors or omissions.
[2021-12-16 13:22] VITALS: BP 155/74; PULSE 80; RESP 18; O2SAT 90
== END 2021-12-16 13:23 | disposition home or self-care (01) ==
PROVIDERS: PCP Internal Medicine Adolescent Medicine; Visit Provider Nurse Anesthetist, Certified Registered
DX: M51.16 Intervertebral disc disorders with radiculopathy, lumbar region (principal)
CPT/HCPCS: 62370

== ENCOUNTER 2022-01-13 17:01 | Observation (INO) | payer MEDICARE, SELFPAY ==
[2022-01-13] VITALS (13 sets, daily range): BP systolic 149–188; BP diastolic 74–104; PULSE 73–84; RESP 12–18; TEMP 37.3; O2SAT 85–97; BMI 47.0; BMI 48.0
--- NOTE | 2022-01-13 17:22 | XR_ITS ---
PROCEDURE INFORMATION: Exam: XR Chest Exam date and time: 01/13/2022 5:47 PM Age: 81 years old Clinical indication: Fever; Additional info: Weakness, fever TECHNIQUE: Imaging protocol: Radiologic exam of the chest. Views: 1 view. Portable AP exam 5:52 p.m. COMPARISON: CR XR SHOULDER RT MIN 2V 02/04/2021 2:32 PM FINDINGS: Tubes, catheters and devices: Overlying electronic device monitor electrodes and oxygen tubing. Lungs: Pulmonary vessels appear prominent, likely mildly congested. Slight central peribronchial thickening. No consolidation. Mild focal atelectasis at the right lung base. Pleural spaces: Trace fluid in the minor fissure on the right. No pneumothorax. Heart/Mediastinum: Enlarged cardiac silhouette. Widened superior mediastinal shadows which could be due to vascular ectasia, but underlying mass or adenopathy would also be considerations. This is accentuated on this portable AP exam. Vasculature: Calcified plaque in the aortic arch. Bones/joints: There are spinal degenerative changes, with multilevel disc narrrowing and spondylosis. IMPRESSION: 1. Enlarged cardiac silhouette, likely dilated cardiomyopathy. 2. Pulmonary vessels appear mildly congested. 3. Widened superior mediastinal shadows which could be due to vascular ectasia, but mediastinal adenopathy or mass would be additional considerations. 4. Trace right pleural effusion. 5. Right basilar atelectasis, no definite consolidation.
--- NOTE | 2022-01-13 17:22 | ECG_ITS ---
APPROVED REPORT Exam: Resting ECG HR:81 bpm ECG Measurements Heart Rate 81 AXES AZ 216 P 20 QRSd 102 QRS 74 QT 390 T 41 QTc 427 Conclusion SINUS RHYTHM WITH FIRST DEGREE AV BLOCK WITH OCCASIONAL ECTOPIC PREMATURE COMPLEXES ST DEVIATION AND MODERATE T-WAVE ABNORMALITY, CONSIDER ANTERIOR ISCHEMIA [-0.1+ mV T-WAVE IN V3/V4] ABNORMAL ECG UNCONFIRMED REPORT Electronically signed by : Eris Avina MD 01/15/2022 21:11:53
--- NOTE | 2022-01-13 17:26 | XR_ITS ---
PROCEDURE INFORMATION: Exam: XR Right Knee Exam date and time: 01/13/2022 5:47 PM Age: 81 years old Clinical indication: Injury or trauma; Fall; Blunt trauma; Knee; Right; Additional info: Fall last week, increased pain TECHNIQUE: Imaging protocol: Radiologic exam of the Right knee. Views: 3 views. COMPARISON: No relevant prior studies available. FINDINGS: Bones/joints: Bones appear diffusely demineralized suggesting osteopenia. No focal lytic lesions. Severe narrowing of the medial knee joint space with [id number] appearance, consistent with underlying chondromalacia. Eburnation of the medial tibial plateau, moderate medial periarticular spurs. Lateral tibiofemoral joint space is well preserved with no significant arthritic deformities. Patellofemoral joint space may be slightly narrowed on the lateral view, there is no sunrise view for more accurate evaluation. Small patellofemoral periarticular spurs. Question trace knee joint effusion, lateral view is slightly rotated and suprapatellar bursal fluid not well evaluated. Soft tissues: Subcutaneous soft tissue edema throughout the visualized right lower extremity.No radiopaque foreign bodies seen. No soft tissue emphysema. Vasculature: Some faintly visible vascular calcifications in the popliteal fossa, and atherosclerotic calcified plaques in the proximal calf. Likely tiny phlebolith in the proximal calf. IMPRESSION: 1. No acute fracture or dislocation. 2. 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 3. Osteopenia. 4. Diffuse soft tissue edema. 5. Atherosclerotic disease.
[2022-01-13 18:33] LABS: Microscopic, Urine URINE MICROSCOPIC (MICROSCOPIC)
[2022-01-13 18:48] LABS: Appearance,Urine CLEAR (Clear); Bilirubin,Urine Negative (Negative); Blood, Urine TRACE-I (Negative); Color,Urine YELLOW (Yellow); Glucose,Urine (UA) Negative (Negative); Ketones,Urine Negative (Negative); Leukocyte Esterase,Urine Negative (Negative); Nitrate,Urine Negative (Negative); Protein,Urine 1+ (Negative); Specific Gravity, Urine 1.025 (1.005-1.030); Urobilinogen,Urine 0.2 EU/dl (0.2)
[2022-01-13 18:49] LABS: RBC,Urine Occasional #/hpf (0-3); Squamous Epithelial Cell,Urine Occasional #/hpf (0-5)
--- NOTE | 2022-01-13 19:21 | PC.NURSE ---
COVID swab sent to lab
[2022-01-13 19:31] LABS: Coronavirus 19, PCR Not Detected (NotDetected); Influenza A, PCR Not Detected (NotDetected); Influenza B, PCR Not Detected (NotDetected)
[2022-01-13 19:43] LABS: Basophils # 0.1 K/mm3 (0-0.2); Eosinophils # 0.3 K/mm3 (0.0-0.4); Eosinophils % 2.5 % (0.1-12.0); Hematocrit 47.1 % (42.0-52.0); Lymphocytes # 2.2 K/mm3 (0.7-4.5); Lymphocytes % 21.3 % (10-50); Mean Corpuscular HGB Conc 31.9 g/dL (31.8-35.4); Mean Corpuscular Hemoglobin 30.4 pg (27.0-31.2); Mean Corpuscular Volume 95.2 fl (80-94); Mean Platelet Volume 8.9 fl (7.4-10.4); Monocytes # 0.5 K/mm3 (0.1-1.0); Monocytes % 5.1 % (1.7-9.3); Neutrophils # 7.2 K/mm3 (1.8-7.8); Neutrophils % 70.1 % (37.0-80.0); Platelet Count 247 K/mm3 (142-424); Red Blood Count 4.94 M/mm3 (4.60-6.20); Red Cell Distribution Width 14.2 % (11.5-17.5); White Blood Count 10.3 K/mm3 (4.8-10.8)
[2022-01-13 19:49] LABS: Chloride 101 mmol/L (98-107)
[2022-01-13 19:50] LABS: Sodium 142 mmol/L (136-145)
[2022-01-13 19:52] LABS: Alanine Aminotransferase 19 U/L (12-78); Alkaline Phosphatase 93 U/L (38-126); Aspartate Amino Transferase 32 U/L (17-59); Bilirubin,Total 0.3 mg/dl (0.2-1.3); Blood Urea Nitrogen 15 mg/dl (9-20); Creatinine Clearance Estimated 54 mL/min (50-200); Estimated Glomerular Filt Rate 93 ml/min (>60); GFR (African American) 112 ML/MIN (>60)
[2022-01-13 19:53] LABS: Albumin Level 3.8 g/dl (3.5-5.0); Albumin/Globulin Ratio 1.2 (1.1-1.8); Calcium 8.4 mg/dl (8.4-10.2); Carbon Dioxide 33 mmol/L (22.0-30.0); Globulin 3.1 g/dL (1.3-3.2); Glucose 116 mg/dl (74-100); Lactic Acid 1.2 mmol/L (0.7-2.1); Total Protein,Serum 6.9 g/dl (6.3-8.2)
[2022-01-13 20:05] LABS: Troponin I 0.05 ng/ml (0.00-0.034)
--- NOTE | 2022-01-13 20:37 | PC.NURSE ---
LAB NOTIFIED OF NEW ORDERS
[2022-01-13 20:59] LABS: NT Pro Brain Natriuretic Pep. 6920 pg/mL (0-450)
[2022-01-13 21:06] LABS: T4 (Thyroxine) 8.2 ug/dl (5.53-11.0)
[2022-01-13 21:20] LABS: Thyroid Stimulating Hormone 2.81 uIU/mL (0.465-4.68)
[2022-01-13 22:06] LABS: Troponin I 0.05 ng/ml (0.00-0.034)
--- NOTE | 2022-01-13 22:42 | PC.NURSE ---
DR WERNER FERREIRA
--- NOTE | 2022-01-13 22:50 | XR_ITS ---
PROCEDURE INFORMATION: Exam: XR Pelvis Exam date and time: 01/13/2022 11:07 PM Age: 81 years old Clinical indication: Pelvic pain; Prior surgery; Surgery date: 6+ months; Surgery type: Pain pump; Patient HX: PT fell x days ago, pain worsened in pelvis; Additional info: Fall TECHNIQUE: Imaging protocol: Radiologic exam of the pelvis. Views: 1 or 2 view. COMPARISON: No relevant prior studies available. FINDINGS: Bones/joints: Unremarkable. No acute fracture. Soft tissues: Unremarkable. IMPRESSION: No acute findings.
--- NOTE | 2022-01-13 22:54 | HMH.EDWEAK ---
Discharge Plan Disposition Patient Disposition: Admitted As Inpatient Chief Complaint: Weakness Clinical Impressions Clinical Impression: CHF (congestive heart failure), Hypothyroidism, Obesity, Falls frequently, Dermatitis Discharge ED Provider: Herson Driver Weakness HPI General Chief complaint: Weakness Stated complaint: Weakness Time Seen by Provider: 01/13/22 22:00 Mode of Arrival: EMS Source of Information: Patient, Spouse, EMS and Medical Record Limitations: Physical Limitations Description of Symptoms (Recalled from ER Triage Doc. by RN): Pt to ED per EMS c/o increased extremity swelling, weakness, pain to buttocks r/t rash. also advises that pt fell last week onto his rt knee and has been c/o increased pain since. History of Present Illness HPI Narrative: pt w/o specific c/o but family report has marked swelling over the last few days with dec ambulation and more falls - has hx of pain pump - MD Complaint: generalized weakness Onset (ago): day(s) Duration: constant Location: generalized Migration: none Severity: moderate Associated symptoms: shortness of breath Related Data Home Medications Medication Instructions Recorded Confirmed alprazolam 1 mg tablet 1.5 mg PO BID Depression 05/14/17 01/13/22 hydrochlorothiazide 25 mg tablet 25 mg PO DAILY Hypertension 05/14/17 01/13/22 omeprazole magnesium 20 mg 20 mg PO DAILY GERD 05/14/17 01/13/22 tablet,delayed release (Prilosec OTC) tamsulosin 0.4 mg capsule (Flomax) 0.4 mg PO DAILY bph 05/14/17 01/13/22 carvedilol 6.25 mg tablet 6.25 mg PO BID blood pressure 05/10/18 01/13/22 finasteride 5 mg tablet (Proscar) 5 mg PO DAILY prostate 05/10/18 01/13/22 indomethacin 25 mg capsule 25 mg PO TIDP PRN pain 05/10/18 01/13/22 memantine 14 mg capsule 20 mg PO DAILY dementia 05/10/18 01/13/22 sprinkle,extended release 24hr hydromorphone (PF) 0.5 mg/0.5 mL 0.4 mg IT CONT Pain 09/13/18 01/13/22 injection syringe levothyroxine 25 mcg tablet 25 mcg PO DAILY hypothyroid 09/13/18 01/13/22 diclofenac sodium 75 mg 75 mg PO BID spasms 09/05/19 01/13/22 tablet,delayed release trazodone 100 mg tablet 100 mg PO DAILY . 01/08/20 01/13/22 Allergies Allergy/AdvReac Type Severity Reaction Status Date / Time diclofenac Allergy Verified 12/16/21 12:43 donepezil [From Namzaric] Allergy Verified 12/16/21 12:43 gabapentin Allergy Verified 12/16/21 12:43 memantine [From Namzaric] Allergy Verified 12/16/21 12:43 pregabalin [From Lyrica] Allergy Verified 12/16/21 12:43 ANTIDEPRESSANTS Allergy Severe AGGRESSIVE Uncoded 03/09/17 15:13 [facility] Medical History (Updated 01/13/22 @ 23:10 by Herson Driver MD) Cannot walk Dementia History of back pain Implantable intrathecal infusion pump present Neuropathy Osteoarthritis Surgical History History of hernia repair History of left knee replacement Family History (Updated 12/16/21 @ 12:46 by Renetta Guajardo, JEREL) No significant family history Social History (Updated 12/16/21 @ 12:46 by Renetta Guajardo, RN) Smoking Status: Never smoker second hand exposure: No alcohol intake: never current occupational status: other Travel in the last 8 weeks: None household members: spouse housing: house current occupational exposures/hazards: No caffeine: Yes ROS Obtained: Yes All systems reviewed & no additional complaints except as documented Constitutional Constitutional: Denies fever(s), Denies headache(s) and Reports weakness Eyes Eyes: Denies diplopia ENT Ears, Nose, Mouth, and Throat: Denies headache(s) Cardiovascular Cardiovascular: Denies diaphoresis Respiratory Respiratory: Reports as per HPI, Reports shortness of breath and Denies cough Gastrointestinal Gastrointestingal: Denies abdominal pain Musculoskeletal Musculoskeletal: Reports arthralgias Integumentary/Breasts Skin/Breast: Denies sores Neurologic
[2022-01-14] VITALS (11 sets, daily range): BP systolic 125–199; BP diastolic 67–95; PULSE 73–89; RESP 16–20; TEMP 36.9–37.4; O2SAT 91–96; BMI 46.7
--- NOTE | 2022-01-14 00:12 | PC.NURSE ---
PT BEING TRANSPORTED UP FOR ADMISSION
[2022-01-14 00:47] LABS: Troponin I 0.05 ng/ml (0.00-0.034)
--- NOTE | 2022-01-14 06:46 | PC.NURSE ---
Pt has tolerated 2 L nc well with sats >90%. No c/o voiced to staff. Coy in place draining pale yellow urine. 2950ml OU since receiving lasix. at bedside. Call light within reach.
--- NOTE | 2022-01-14 07:27 | PC.NURSE ---
Pt states she is unaware of husbands meds but will have son bring all his pill bottles this morning.
--- NOTE | 2022-01-14 07:30 | HMH.PHAINT1 ---
Pharmacy Intervention Comments: Home medication reconciliation completed using outpatient pharmacy fill history and interview with patient and .
--- NOTE | 2022-01-14 08:32 | CA_ITS ---
APPROVED REPORT EXAM: Comprehensive 2D, Doppler, and color-flow Echocardiogram Demand Planner: Farhana Birmingham RVT Ht: 5 ft 7 in Wt: 297lbs BSA: 2.39 BP: 175/92 mmHg Indications: CHF,SOA,EDEMA 2D Dimensions LVOT 2.81 cm (M/F) 1.5-2.5 M-Mode Dimensions RVDd 3.74 cm (0.9-2.6) LA Diam 5.38 cm (1.9-4.0) LVDd 5.66 cm (3.5-5.7) Ao Diam 4.02 cm (2.0-3.7) LVDs 3.54 cm (3.5-5.7) IVSd 0.84 cm (0.6-1.1) PWd 0.84 cm (0.6-1.1) EF (Teich) 66.80% FS 37.50% EDV (Teich) 157.50 mL TAPSE 3.01 (<1.7) ESV (Teich) 52.30 mL LV Diastology E Decel Time 150.00 (160-240 msec) E/A Ratio 0.8 MED E' 6.00 (< 7 cm/sec) E'/MED E' Ratio 7.45 (>14) LAT E' 9.10 (<10 cm/sec) E/LAT E' Ratio 4.91 (>14) Aortic Valve AO Peak GR. 4.10 mmHg Mitral Valve MV E Max Britton. 45.00 (40-130 cm/s) MV A Velocity 54.00 (40-130 cm/s) E/A Ratio 0.82 MV Decel. Time 150.00 (160-240 ms) MV PHT 44.00 ms Pulmonary Valve PV Peak Velocity 77.00 (50-150 cm/s) Tricuspid Valve TR P. Velocity 190.00 cm/s RAP Estimate 15.00 mmHg RVSP 29.40 mmHg Left Ventricle Technically difficult study because of the patient factors and poor acoustic windows. Left atrium is mildly enlarged, left ventricle is normal size mild concentric left ventricular hypertrophy, estimated ejection fraction 50% with no regional wall motion abnormality, endocardial surfaces are very poorly visualized. Diastolic parameters are inconclusive. Right Ventricle Right atrium and right ventricle are mildly enlarged with normal contractility. Aortic Valve Aortic valve is minimally thickened and fibrosed there is no aortic stenosis aortic insufficiency. Mitral Valve Mitral valve leaflets are minimally thickened, there is mild mitral regurgitation. Tricuspid Valve Tricuspid valve grossly normal, there is mild tricuspid regurgitation, tricuspid regurgitation jet velocity is inadequate for calculation of the right ventricular systolic pressure. Pulmonic Valve Pulmonic valve is poorly visualized. Great Vessels Aortic root is normal size. Inferior vena cava is poorly visualized. Pericardium No significant pericardial effusion noted. Conclusion 1. Technically difficult study because of the patient factors and poor acoustic windows. 2. Mild biatrial enlargement, normal left ventricular size, mild concentric left ventricular hypertrophy, estimated ejection fraction 50% with no regional wall motion abnormality, endocardial cells are very poorly visualized, diastolic parameters are inconclusive. 3. Mildly enlarged right ventricle with normal contractility. 4. Mild mitral and tricuspid regurgitation. 5. No significant pericardial effusion noted. 6. Inferior vena cava is poorly visualized. Electronically signed by : Siva Holm MD 01/16/2022 15:26:04
--- NOTE | 2022-01-14 08:33 | EXP.HP ---
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 X-rays were negative for fracture of the knee but had significant arthritis. Noted to have pulmonary vascular congestion on chest x-ray, elevated BNP levels and admitted to hospital for IV Lasix and reevaluation of his CHF and other medical problems. [facility] Medical History (Updated 01/14/22 @ 08:39 by Eris Avina MD) Cannot walk Dementia History of back pain Implantable intrathecal infusion pump present Neuropathy Osteoarthritis Surgical History History of hernia repair History of left knee replacement Family History (Updated 12/16/21 @ 12:46 by Renetta Guajardo, JEREL) No significant family history Social History (Updated 01/14/22 @ 00:40 by Kim Carmen RN) Smoking Status: Never smoker second hand exposure: No alcohol intake: never current occupational status: other Travel in the last 8 weeks: None household members: spouse housing: house current occupational exposures/hazards: No caffeine: Yes Review of Systems Review of Systems Review of systems:: pertinent systems reviewed and negative unless documented below Constitutional Constitutional: Denies headache(s) and Reports weakness ENT Ears, Nose, Mouth, and Throat: Denies headache(s) *Neurologic Neurologic: Denies headache(s) and Reports weakness Meds Home Medications and Allergies Home Medications Medication Instructions Recorded Confirmed Type alprazolam 1 mg tablet 2 mg PO BID Anxiety 05/14/17 01/14/22 History tamsulosin 0.4 mg capsule (Flomax) 0.4 mg PO DAILY bph 05/14/17 01/13/22 History carvedilol 6.25 mg tablet 6.25 mg PO BID blood pressure 05/10/18 01/13/22 History indomethacin 25 mg capsule 25 mg PO TIDP PRN pain 05/10/18 01/13/22 History hydromorphone (PF) 0.5 mg/0.5 mL 0.4 mg IT CONT Pain 09/13/18 01/13/22 History injection syringe trazodone 100 mg tablet 100 mg PO HS sleep 01/08/20 01/14/22 History levothyroxine 100 mcg tablet 100 mcg PO DAILY hypothyroidism 01/14/22 01/14/22 History memantine 10 mg tablet 10 mg PO BID memory 01/14/22 01/14/22 History New Prescriptions to Start Prescriptions: Allergies Allergy/AdvReac Type Severity Reaction Status Date / Time diclofenac Allergy Unknown Verified 01/14/22 07:55 allergy reaction donepezil [From Namzaric] Allergy Unknown Verified 01/14/22 07:55 allergy reaction gabapentin Allergy Unknown Verified 01/14/22 07:55 allergy reaction pregabalin [From Lyrica] Allergy Unknown Verified 01/14/22 07:55 allergy reaction ANTIDEPRESSANTS Allergy Severe AGGRESSIVE Uncoded 03/09/17 15:13 Exam Data for Last 24 hours Vital signs and Labs for Last 24 Hours: Temp Pulse Resp BP Pulse Ox 98.9 F 74 17 161/85 H 96 01/14/22 07:34 01/14/22 07:34 01/14/22 07:34 01/14/22 07:34 01/14/22 07:34 Laboratory Results - last 24 hr 01/13/22 00:11: Troponin I 0.05 H 01/13/22 18:08: Urine Color Yellow, Urine Appearance Clear, Urine pH 6.0, Ur Specific [place] 1.025, Urine Protein 1+, Urine Glucose (UA) Negative, Urine Ketones Negative, Urine Blood Trace-i, Urine Nitrate Negative, Urine Bilirubin Negative, Urine Urobilinogen 0.2, Ur Leukocyte Esterase Negative, Urine RBC Occasional, Urine WBC None, Ur Squamous Epith Cells Occasional, Urine Bacteria None 01/13/22 19:15: WBC 10.3, RBC 4.94, Hgb 15.0, Hct 47.1, MCV 95.2 H, MCH 30.4, MCHC 31.9, RDW 14.2, Plt Count 247, MPV 8.9, Neut % (Auto) 70.1, Lymph % (A
--- NOTE | 2022-01-14 09:13 | HMH.OTEV ---
OT Inpatient Evaluation Rehab OT IP Evaluation Start: 01/14/22 08:01 Freq: ONCE Status: Complete Protocol: Document 01/14/22 09:05 ASHLEIGH (Rec: 01/14/22 09:13 [id number] Rehab OT IP Assessment Subjective History Pt oriented x 3 on arrival. Pt agreeable to engage in therapy evaluation. Pt was admitted via ED on 01/13/22 due to frequent falls and functional decline. Pt reports prior to being in the hosptial he was living at home with his . Pt was requiring assistance with dressing (lower body) and sponge bathing. Pt was independent with feeding himself. He was dependent upon his to complete all IADLs such as cleaning, cooking, laundry, grocery shopping, etc. Pt did use a rolling walker during ambulation. Subjective I am weak i think. Objective Patient Orientation Person,Place,Birthday Upper Extremity Gross ROM Min Limitation <25% Shoulder ROM Limitations Muscle Weakness Elbow ROM Limitations Muscle Weakness Wrist Limitations of Range of Motion Muscle Weakness Transfer Training Sit/Stand Transfer Assist Level Minimal x 1 (25% assist) Chair Transfer Assistive Devices Rolling Walker Rehab OT IP prob,goals,plan Problems Date of Evaluation: 01/14/22 OT IP Problems Bed Mobility,Transfers,Balance ,Self care,Safety Rehab Potential Rehab Potential Good Equipment Needs Assistive Devices Rolling / Wheeled Walker Plan OT intervention Plan Bed Mobility,Transfers,Balance ,Self care,Safety,Therapeutic Exercise OT Plan Frequency BID Duration LOS Discharge Goals Bed Mobility Ability Standby Assistance Sit to Stand Chair Transfer Ability Contact Guard/Hand Hold Chair Transfer Ability Contact Guard/Hand Hold Chair Transfer Technique Sit to/from Ambulatory Chair Transfer Assistive Devices Rolling Walker Feeding Ability Assist with Tray Set Up Lower Body Dressing Ability Assistance X1 Upper Body Dressing Ability Standby Assistance Bathing Ability Assistance x1 Performing Toilet Hygie
--- NOTE | 2022-01-14 09:28 | CARE MANAGER ---
After PT eval it appears this patient will need SNF placement, [facility] does not have any beds and [facility] and [facility] do not accept patient insurance. Spoke at length with and she requests [facility] in [place] and [place]. She has a hard time driving far thus she prefers the patient stay close. Information will be faxed to [facility] and [facility] in [place].
--- NOTE | 2022-01-14 09:59 | HMH.PTEV ---
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 Subjective Subjective Pt reports willing to participate - pt alert to name , birthday, and place, not year Rehab PT IP Eval Objective Appearance Patient Behavior Cooperative Patient Orientation Place,Name,Birthday,Situation Difficulty following instructions none Speech Pattern Appropriate Ambulation Patient Able to Ambulate Yes Ambulation Observation IP General Gait Pattern Observation Wide Based Gait,Shuffling Step Ambulation Distance (feet) 4 Ambulation Assistive Device Rolling Walker Ambulation Ability Contact Guard/Hand Hold Balance Ability to Arise Able, uses arms to help Sitting Balance Steady, safe Standing Balance Unsteady Dynamic Sitting Balance Ability Fair Dynamic Standing Balance Ability Poor Transfers Bed Transfer Ability Contact Guard/Hand Hold Chair Transfer Ability Contact Guard/Hand Hold Sit to Stand Bed Transfer Ability Contact Guard/Hand Hold, Minimal x 1 (25% assist) Sit to Stand Chair Transfer Ability Contact Guard/Hand Hold, Minimal x 1 (25% assist) Rehab PT IP prob,goals,plan Problems Date of Evaluation: 01/14/22 PT IP Problems Bed Mobility,Transfers,Gait, Balance,Self care,Safety Rehab Potential Rehab Potential Fair Equipment Needs Assistive Devices Rolling / Wheeled Walker Plan PT Intervention Plan Bed Mobility,Transfers,Gait, Balance,Self care,Safety, Therapeutic Exercise PT Plan Frequency BID Duration LOS Discharge Goals Bed Transfer Ability Contact Guard/Hand Hold Sit to Stand Chair Transfer Ability
--- NOTE | 2022-01-14 14:35 | CARE MANAGER ---
Antonio from [facility] states that they can accept this patient and will begin authorization. Will follow-up with .
--- NOTE | 2022-01-14 15:14 | XR_ITS ---
FINAL REPORT CLINICAL HISTORY: bruising FINDINGS: LEFT FOOT Three views of the left foot demonstrate no acute fracture or dislocation. The bones are osteopenic. The visualized joint spaces are normally aligned. There are mild degenerative changes. There is a plantar calcaneal spur. There is soft tissue swelling of the forefoot. IMPRESSION: Swelling with no acute bony abnormality. Reviewed, Interpreted and Dictated by John Childs III, MD Transcribed by Bronwyn Singh Authenticated and [facility]
--- NOTE | 2022-01-14 20:20 | PC.NURSE ---
pt is AOX4 with episodes of confusion due to his hx of dementia, he did get up to chair with PT x2 assist but required castillo lift to get back into bed because he could not lift himself into bed. he has worn 2lnc for o2 support, pepe cath in place to bedside drain.
[2022-01-15] VITALS: BP 146/85; PULSE 93; RESP 20; TEMP 36.4; O2SAT 94
[2022-01-15 04:00] VITALS: BP 159/82; PULSE 82; RESP 19; TEMP 37.1; O2SAT 92
--- NOTE | 2022-01-15 04:44 | PC.NURSE ---
pt rested well through the night, no acute distress, pt is alert and oriented with mild dementia noted, pt was unable to state the year, lung sounds diminished, 02 sats 92% on 2L pnc, VSS, 2+ generalized edema noted, pepe to bsd with clear yellow urine noted, pt with incontinent loose bm with mild odor noted, pt with red irritated areas under breasts, pannus and groin area with a yeasty smell noted, nystatin oint applied, rectal area with mild redness noted and barrier cream applied, remains at bedside through the night, no other issues or concerns noted at this time.
[2022-01-15 05:50] VITALS: BMI 45.6
[2022-01-15 07:13] LABS: Chloride 93 mmol/L (98-107); Potassium 3.3 mmoL/L (3.5-5.1); Sodium 140 mmol/L (136-145)
[2022-01-15 07:16] LABS: Anion Gap 11.3 mEq/L (5-15); Blood Urea Nitrogen 16 mg/dl (9-20); Carbon Dioxide 39 mmol/L (22.0-30.0); Creatinine Clearance Estimated 52 mL/min (50-200); Estimated Glomerular Filt Rate 108 ml/min (>60); GFR (African American) 131 ML/MIN (>60); Glucose 120 mg/dl (74-100)
[2022-01-15 07:17] LABS: Calcium 8.3 mg/dl (8.4-10.2)
[2022-01-15 07:31] LABS: Basophils # 0.1 K/mm3 (0-0.2); Basophils % 0.8 % (0.1-2.0); Eosinophils # 0.2 K/mm3 (0.0-0.4); Eosinophils % 2.1 % (0.1-12.0); Hematocrit 47.1 % (42.0-52.0); Hemoglobin 15.1 g/dL (14.1-18.0); Mean Corpuscular HGB Conc 32.1 g/dL (31.8-35.4); Mean Corpuscular Hemoglobin 30.4 pg (27.0-31.2); Mean Corpuscular Volume 94.5 fl (80-94); Mean Platelet Volume 8.8 fl (7.4-10.4); Monocytes # 0.5 K/mm3 (0.1-1.0); Monocytes % 5.6 % (1.7-9.3); Neutrophils # 6.6 K/mm3 (1.8-7.8); Neutrophils % 70.5 % (37.0-80.0); Platelet Count 254 K/mm3 (142-424); Red Blood Count 4.98 M/mm3 (4.60-6.20); Red Cell Distribution Width 14.1 % (11.5-17.5); White Blood Count 9.4 K/mm3 (4.8-10.8)
[2022-01-15 08:00] VITALS: BP 136/81; PULSE 69; RESP 18; TEMP 36.4; O2SAT 95
--- NOTE | 2022-01-15 11:11 | EXP.DC.SUM ---
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 X-rays were negative for fracture of the knee but had significant arthritis. Noted to have pulmonary vascular congestion on chest x-ray, elevated BNP levels and admitted to hospital for IV Lasix and reevaluation of his CHF and other medical problems. Hospital Course Hospital Course Hospital Course: Patient was admitted because of profound weakness and dyspnea. Chest x-ray showed evidence of pulmonary venous congestion. He was given Lasix and had a good response to this. Coy catheter was placed because of his severe weakness, inability to stand and void and for wound prevention given his bedbound status. Echocardiogram showed preserved ejection fraction but evidence of diastolic dysfunction. PT and OT recommended that he receive skilled care given his neuropathy, obesity and overall weakness. A bed was found for the patient at the [facility]. To be transferred there today. Please note he will need to receive PT/OT evaluation. He will need to receive a low-fat/low-salt cardiac diet. He will be placed on daily Lasix as noted in the discharge medication list. He will continue his chronic medications as noted. He will have a Coy catheter on transfer to the halfway, I would like to initiate bladder training at the halfway and once he is able to start getting up and walking around the catheter can be discontinued. Please note we will follow him on her regular halfway rounds. Please note that he will need a BMP and CBC on January 19 to monitor kidney function with the initiation of Lasix therapy. Exam Data for Last 24 hours Vital signs and Labs for Last 24 Hours: Temp Pulse Resp BP Pulse Ox FiO2 97.6 F 69 18 136/81 95 2 01/15/22 08:00 01/15/22 08:00 01/15/22 08:00 01/15/22 08:00 01/15/22 08:00 01/14/22 07:45 Laboratory Results - last 24 hr 01/15/22 06:53: WBC 9.4, RBC 4.98, Hgb 15.1, Hct 47.1, MCV 94.5 H, MCH 30.4, MCHC 32.1, RDW 14.1, Plt Count 254, MPV 8.8, Neut % (Auto) 70.5, Lymph % (Auto) 21.0, Pitkin % (Auto) 5.6, Eos % (Auto) 2.1, Baso % (Auto) 0.8, Neut # (Auto) 6.6, Lymph # (Auto) 2.0, Pitkin # (Auto) 0.5, Eos # (Auto) 0.2, Baso # (Auto) 0.1 01/15/22 06:53: Sodium 140, Potassium 3.3 L, Chloride 93 L, Carbon Dioxide 39 H, Anion Gap 11.3, BUN 16, Creatinine 0.70, Estimated Creat Clear 52, Estimated GFR 108, Est GFR ( Amer) 131, Glucose 120 H, Calcium 8.3 L I & O for Last 24 hours: Intake & Output 01/12/22 01/13/22 01/14/22 01/15/22 11:59 11:59 11:59 11:59 Intake Total 300 / 300 720 / 720 Output Total 5650 / 5650 1270 / 1270 Balance -5350 / -5350 -550 / -550 Weight 297 lb 9.985 oz 290 lb 12.635 oz Constitutional Constitutional: no acute distress and morbidly obese *Routine HEENT Exam Head: Present normocephalic Eye: Present EOMI and PERRL ENT: Present mucous membranes moist *Routine Neck Exam Neck: Present supple; Absent lymphadenopathy *Routine Respiratory Exam Comments: Bibasilar crackles in both lungs. Improved over admission *Routine Cardiovascular Exam Cardiovascular: Present RRR *Routine Abdominal Exam Abdominal: Present soft and normoactive bowel sounds; Absent tenderness *Routine Exam Comments: Coy catheter in place draining clear yellow urine *Routine Extremities Exam Extremities: Absent cyanosis, clubbing or edema Comments: 1+ ankle edema. Hands with trace edema. *Routine Skin Exam Skin: Present warm; Absent rash *Routine Neurological Exam Neurological: Present alert Comments: Oriented x2. Little fuzzy about the date given his basel
--- NOTE | 2022-01-15 11:20 | CARE MANAGER ---
Patient has been approved for [facility], he will discharge today.
--- NOTE | 2022-01-15 11:30 | PC.NURSE ---
Home meds returned to pt's
[2022-01-15 11:45] VITALS: BP 136/63; PULSE 77; RESP 18; TEMP 36.7; O2SAT 93
--- NOTE | 2022-01-16 14:03 | CARE MANAGER ---
Spoke with nurse at [facility] for post-discharge phone interview, she states that patient is doing well and has no issues at this time.
== END 2022-01-15 13:10 ==
LOC: ER 22:35 → 2ND 23:10
PROVIDERS: Emergency Medicine; Admitting Provider Family Medicine; Emergency Provider Emergency Medicine; PCP Internal Medicine Adolescent Medicine; Visit Provider Internal Medicine Adolescent Medicine
DX: I11.0 Hypertensive heart disease with heart failure (principal); I50.30 Unspecified diastolic (congestive) heart failure; E03.9 Hypothyroidism, unspecified; R29.6 Repeated falls; Z79.899 Other long term (current) drug therapy; Z20.822 Contact with and (suspected) exposure to COVID-19
CPT/HCPCS: G0378; 36415; 71045; 72170; 73562; 73630; 80048; 80053; 81001; 83605; 83880; 84436; 84443; 84484; 85025; 87040; 93005; 93306; 97116; 97162; 97166; 97530; 97535; 99285; C9803; U0003; U0005

== ENCOUNTER 2023-04-22 11:09 | Emergency (ER) | payer MEDICARE, SELFPAY ==
[2023-04-22] VITALS (14 sets, daily range): BP systolic 133–176; BP diastolic 47–79; PULSE 52–75; RESP 18–24; TEMP 36.7; O2SAT 92–99; BMI 41.0
--- NOTE | 2023-04-22 11:23 | ECG_ITS ---
APPROVED REPORT Exam: Resting ECG HR:70 bpm ECG Measurements Heart Rate 70 AXES QRSd 104 QRS 63 QT 373 T 25 QTc 394 Conclusion SUPRAVENTRICULAR RHYTHM MODERATE ST DEPRESSION [0.05+ mV ST DEPRESSION] ABNORMAL ECG UNCONFIRMED REPORT Electronically signed by : Eris Avina MD 04/22/2023 16:32:14
--- NOTE | 2023-04-22 11:27 | CT_ITS ---
FINAL REPORT TECHNIQUE: Axial images were obtained from skull base to the thoracic inlet by computed tomography. Coronal and sagittal reconstruction process performed. This study was performed with techniques to keep radiation doses as low as reasonably achievable (ALARA). Individualized dose reduction techniques using automated exposure control or adjustment of mA and/or kV according to the patient''s size were employed. CLINICAL HISTORY: fall from wheelchair FINDINGS: There is no acute fracture or subluxation. There is moderate diffuse degenerative disc disease. The facets are normally aligned. The soft tissues are unremarkable. Limited images of the lung apices are unremarkable. IMPRESSION: No acute fracture. Reviewed, Interpreted and Dictated by Dio Alvarado MD Transcribed by Brenna Aranda Authenticated and [facility]
--- NOTE | 2023-04-22 11:27 | CT_ITS ---
FINAL REPORT TECHNIQUE: Axial images were performed through the brain.This study was performed with techniques to keep radiation doses as low as reasonably achievable, (ALARA). Individualized dose reduction techniques using automated exposure control or adjustment of mA and/or kV according to the patient''s size were employed. CLINICAL HISTORY: fall from wheelchair FINDINGS: There is global atrophy. The ventricles are normal in size for the degree of atrophy. There is no extra-axial fluid or midline shift. There is no evidence of acute hemorrhage or mass. IMPRESSION: Atrophy. No acute intracranial process. Reviewed, Interpreted and Dictated by Dio Alvarado MD Transcribed by Brenna Aranda Authenticated and . [facility]
--- NOTE | 2023-04-22 11:28 | XR_ITS ---
FINAL REPORT TECHNIQUE: Single view chest CLINICAL HISTORY: cough, SOA COMPARISON: Diabetes mellitus FINDINGS: A single view of the chest was obtained. The heart is enlarged. There is a moderate right pleural effusion. There is no pneumothorax. Osseous structures are unremarkable. IMPRESSION: Moderate right pleural effusion. Reviewed, Interpreted and Dictated by Dio Alvarado MD Transcribed by Brenna Aranda Authenticated and [facility]
--- NOTE | 2023-04-22 11:49 | HMH.EDGENADL ---
Discharge Plan Disposition Patient Disposition: Home, Self-Care Prescriptions Prescriptions: New alprazolam [Xanax] 2 mg tablet 2 mg PO BID Qty: 10 0RF No Action tamsulosin [Flomax] 0.4 MG capsule 0.4 mg PO DAILY hydromorphone (PF) 0.5 MG/0.5 ML syringe 0.4 mg IT CONT Rx Instructions: concentration of intrathecal dilaudid is 5mg/ml levothyroxine 100 mcg tablet 100 mcg PO DAILY memantine 10 mg tablet 10 mg PO BID carvedilol 12.5 mg tablet 12.5 mg PO BID furosemide 40 mg tablet 40 mg PO DAILY Qty: 30 0RF alprazolam 1 MG tablet 2 mg PO BID 30 Days Qty: 120 0RF trazodone 100 MG tablet 100 mg PO HS Referrals Follow up/Referrals: Provider,Referral, MD [Primary Care Provider] - See instructions Clinical Impressions Clinical Impression: CHF exacerbation, Pleural effusion, right, Debility, History of chronic carbon dioxide retention Discharge ED Provider: Esdras Nieves General Adult HPI <Ju Weaver DO - Last Filed: 04/22/23 14:57> General Chief complaint: Upper Respiratory Infection Stated complaint: weakness Time Seen by Provider: 04/22/23 11:13 Mode of Arrival: EMS Source of Information: Patient and Spouse Limitations: No Limitations Description of Symptoms (Recalled from ER Triage Doc. by RN): pt arrives via EMS. EMS reports the pt was transfering from the bed to the wheelchair and slipped out of the chair down to the floor. pt denies any pain or LOC. Pts states he is not here for a fall. Pts states for the past week he has had a nonproductive cough, decreased appetite and diarrhea. pt is on 3L NC upon arrival, his baseline at home is 2L NC. pt has a hx of dementia, HTN, and neuropathy. History of Present Illness HPI narrative: This patient is an 82-year-old male with a history of obesity, CHF, dementia, peripheral neuropathy, and hypothyroidism presenting to the emergency department for evaluation with concern for nonproductive cough. This has been going on for approximately a week. Patient is also had decreased appetite and diarrhea. Patient typically requires 2 L nasal cannula at home, however EMS had increased to 3 L nasal cannula for hypoxia on room air. They noted diminished breath sounds, so they gave a DuoNeb with some improvement in his oxygenation. No other concerns noted, such as fevers, chills, chest pain, abdominal pain, or other concerns. Patient did slip out of his wheelchair when transferring today, but no traumatic injuries noted from the fall. No head injury or loss of consciousness. He was well prior to this and denies any injuries as a result of this and states that is not why he is here. His denies any known diagnoses of COPD. She notes that they came in today seeking help because she is no longer able to care for him at home. He is not able to help with transfers/care at home anymore, and she does not have further support. Related Data Home Medications Medication Instructions Recorded Confirmed tamsulosin 0.4 mg capsule (Flomax) 0.4 mg PO DAILY bph 05/14/17 01/13/22 hydromorphone (PF) 0.5 mg/0.5 mL 0.4 mg IT CONT Pain 09/13/18 01/13/22 injection syringe trazodone 100 mg tablet 100 mg PO HS sleep 01/08/20 01/14/22 carvedilol 12.5 mg tablet 12.5 mg PO BID High blood pressure 01/14/22 01/14/22 levothyroxine 100 mcg tablet 100 mcg PO DAILY hypothyroidism 01/14/22 01/14/22 memantine 10 mg tablet 10 mg PO BID memory 01/14/22 01/14/22 Previous Rx's Medication Instructions Recorded alprazolam 1 mg tablet 2 mg PO BID Anxiety 30 days #120 01/15/22 tabs furosemide 40 mg tablet 40 mg PO DAILY #30 tabs 01/15/22 alprazolam 2 mg tablet (Xanax) 2 mg PO BID #10 tabs 04/22/23 Allergies Allergy/AdvReac Type Severity Reaction Status Date / Time diclofenac Allergy Unknown Verified 04/22/23 11:42 allergy reaction donepezil [From Namzaric] Allergy Unknown Verified 04/22/23 11:42 allergy reaction gabapentin Allergy Unknown Verified 04/22/23 11:42 allergy reaction pregabalin [From Lyrica] Allergy Unknown Verified 04/22/23 11:42 allergy reaction ANTIDEPRESSANTS Allergy Severe AGGRESSIVE Uncoded 03/09/17 15:13 PFSH <Ju N Owen, DO - Last Filed: 04/22/23 14:57> PFSH Disclaimer: The information contained in this section may have been updated after the patient was seen, as this information can be updated by other users. Medical History (Updated 04/22/23 @ 13:45 by Ju Weaver DO) Cannot walk Dementia Dermatitis History of back pain Implantable intrathecal infusion pump present Neuropathy Osteoarthritis Surgical History History of hernia repair History of left knee replacement Family History (Updated 12/16/21 @ 12:46 by Renetta Guajardo, JEREL) Other No significant family history Social History (Updated 01/14/22 @ 00:40 by Kim Carmen RN) Smoking Status: Never smoker second hand exposure: No alcohol intake: never current occupational status: other Travel in the last 8 weeks: None household members: spouse housing: house current occupational exposures/hazards: No caffeine: Yes <Ju Weaver DO - Last Filed: 04/22/23 14:57> ROS Obtained: Yes All systems reviewed & no additional complaints except as documented Physical Exam <Ju Weaver DO - Last Filed: 04/22/23 14:57> General General appearance: obese Head Head exam: atraumatic and normocephalic Eye Eye exam: Present normal appearance, PERRL and EOMI ENT ENT exam: Present normal exam, normal oropharynx, mucous membranes moist and normal external ear exam Neck Neck exam: Present normal inspection, full ROM and trachea midline; Absent tenderness Chest Chest inspection: Present normal inspection and symmetric chest wall rise; Absent tenderness Respiratory Respiratory exam: Present prolonged expiratory phase and other (diminished breath sounds bilaterally); Absent respiratory distress, wheezes, stridor or accessory muscle use Cardiovascular Cardiovascular exam: Present regular rate and normal rhythm Abdominal Exam Abdominal exam: Present soft; Absent distention, tenderness or guarding Extremities Exam Extremities exam: Present normal inspection, full ROM and normal capillary refill; Absent tenderness or edema Back Exam Back exam: Present normal inspection and full ROM; Absent tenderness Neurological Exam Neurological exam: Present alert, oriented X3, CN II-XII intact and other (general weakness without focal deficit) Psychiatric Psychiatric exam: Present normal affect and normal mood Skin Skin exam: Present warm and dry Medical Decision Making <Ju Weaver DO - Last Filed: 04/22/23 14:57> Medical Records Medical records reviewed: Yes I reviewed the patient's medical records. Isidro Inquiry Pt receiving controlled substance: No Vital Signs: 04/22/23 11:25 04/22/23 13:40 04/22/23 13:40 Temperature 98.1 F Temperature Source Oral Pulse Rate 70 70 Pulse Rate [Left] 75 Respiratory Rate 20 Blood Pressure Blood Pressure [Right Arm] 166/74 H Blood Pressure Mean Blood Pressure Mean [Right Arm] 104 Blood Pressure Source [Right Arm] Automatic Cuff Blood Pressure Position [Right Arm] Supine 02 Sat by Pulse Oximetry 99 Oxygen Delivery Method Oxygen Flow Rate (LPM) 04/22/23 11:31 04/22/23 12:01 04/22/23 13:31 Temperature Temperature Source Pulse Rate 69 71 52 L Pulse Rate [Left] Respiratory Rate 18 20 Blood Pressure 164/71 H 166/70 H 176/79 H Blood Pressure [Right Arm] Blood Pressure Mean 102 102 111 Blood Pressure Mean [Right Arm] Blood Pressure Source [Right Arm] Blood Pressure Position [Right Arm] 02 Sat by Pulse Oximetry 96 94 L 95 Oxygen Delivery Method Oxygen Flow Rate (LPM) 04/22/23 14:01 04/22/23 14:31 04/22/23 15:01 Temperature Temperature Source Pulse Rate 69 74 70 Pulse Rate [Left] Respiratory Rate 24 18 Blood Pressure 145/69 H 146/75 H 141/64 H Blood Pressure [Right Arm] Blood Pressure Mean 114 98 98 Blood Pressure Mean [Right Arm] Blood Pressure Source [Right Arm] Blood Pressure Position [Right Arm] 02 Sat by Pulse Oximetry 96 95 94 L Oxygen Delivery Method Nasal Cannula Oxygen Flow Rate (LPM) 2 04/22/23 15:31 Temperature Temperature Source Pulse Rate 74 Pulse Rate [Left] Respiratory Rate 18 Blood Pressure 138/55 L Blood Pressure [Right Arm] Blood Pressure Mean 82 Blood Pressure Mean [Right Arm] Blood Pressure Source [Right Arm] Blood Pressure Position [Right Arm] 02 Sat by Pulse Oximetry 92 L Oxygen Delivery Method Nasal Cannula Oxygen Flow Rate (LPM) 2 Lab Data Lab results reviewed: Yes I reviewed the patient's lab results. Lab Results 04/22/23 11:27: VBG pH 7.36, VBG pCO2 71.1 H, VBG pO2 55.8 H, VBG HCO3 39.3 H, VBG Total CO2 41.4 H, VBG O2 Saturation 90.1 H, VBG Base Excess 13.8 H 04/22/23 12:07: SARS-CoV-2 (PCR) Not detected, Influenza A Untype (PCR) Not detected, Influenza Type B (PCR) Not detected 04/22/23 12:35: Sodium 139, Potassium 3.9, Chloride 92 L, Carbon Dioxide 41 H*, Anion Gap 9.9, BUN 9, Creatinine 0.60 L, Estimated Creat Clear 96, Estimated GFR 129, Est GFR ( Amer) 156, Glucose 109 H, Lactate 1.1, Calcium 9.1, Total Bilirubin 0.5, AST 30, ALT 20, Alkaline Phosphatase 65, NT-Pro-B Natriuret Pep 1160 H, Total Protein 6.9, Albumin 3.8, Globulin 3.1, Albumin/Globulin Ratio 1.2 04/22/23 12:50: WBC 7.7, RBC 4.46 L, Hgb 14.1, Hct 43.4, MCV 97.2 H, MCH 31.6 H, MCHC 32.5, RDW 13.3, Plt Count 183, MPV 8.3, Neut % (Auto) 65.9, Lymph % (Auto) 26.8, [place] % (Auto) 4.6, Eos % (Auto) 1.8, Baso % (Auto) 0.9, Neut # (Auto) 5.1, Lymph # (Auto) 2.1, [place] # (Auto) 0.4, Eos # (Auto) 0.1, Baso # (Auto) 0.1 04/22/23 12:50 04/22/23 12:35 Orders (Tests/Meds): ED MEDICATIONS Discontinued Medications Generic Name Dose Route Start Last Admin Trade Name Freq PRN Reason Stop Dose Admin Albuterol/Ipratropium 9 ml 04/22/23 12:17 04/22/23 13:40 Ipratropium/Albuterol 3 Ml Neb IH 04/22/23 12:18 9 ml ONCE ONE Administration Furosemide 80 mg 04/22/23 13:15 04/22/23 13:48 Furosemide 40mg/4ml Vial IV 04/22/23 13:16 80 mg ONCE ONE Administration ORDERS Category Date Time Status CT cervical spine wo con Stat Cat Scan 04/22/23 11:[address] head/brain wo con Stat Cat Scan 04/22/23 11:27 Completed XR chest portable Stat Exams 04/22/23 11:28 Completed Brain Natriuretic Peptide Stat Lab 04/22/23 12:35 Completed Complete Blood Count Auto Diff Stat Lab 04/22/23 12:50 Completed Comprehensive Metabolic Panel Stat Lab 04/22/23 12:35 Completed Lactic Acid Stat Lab 04/22/23 12:35 Completed Rapid PCR Covid and Flu A/B Stat Lab 04/22/23 12:07 Completed Venous Blood Gas Stat RT 04/22/23 11:27 Completed ECG initial Besson Routine Y 04/22/23 11:23 Completed ECG Data Tracing #1: I reviewed this ECG and interpreted as documented below: Significant motion artifact limiting assessment. Sinus bradycardia with a ventricular rate of 50 bpm. No obvious acute ST changes concerning for ischemia. ECG initial impression date: 04/22/23 ECG initial impression time: 11:29 Tracing #2: I reviewed this ECG and interpreted as documented below: Normal sinus rhythm with a ventricular rate of [address] changes concerning for ischemia. Motion artifact noted. ECG initial impression date: 04/22/23 ECG initial impression time: 11:29 Medical Decision Narrative: In summary, this patient is a 82-year-old male presenting to the Emergency Department for evaluation of nonproductive cough, general weakness, poor appetite, and concern that his is no longer able to care for him at home. Differential diagnoses considered include but are not limited to CHF exacerbation, COPD, pneumonia, respiratory failure. Ruling out the most morbid conditions drove assessment. It should be noted patient's history includes dementia, peripheral neuropathy, CHF, hypothyroidism, and obesity which may or may not be at goal therapy. This complicates all aspects of care by increasing patient's risk for morbidity. I reviewed patient's past medical records and noted previous admission for CHF exacerbation over a year ago. On exam, the patient is alert and conversational. He is obese with chronic general debility but is in no acute distress. He does have diminished breath sounds bilaterally and an increased oxygen requirement, though he is not in any respiratory distress. Workup included CBC, CMP, BNP, lactic acid, VBG, chest x-ray, and EKG. He has diminished breath sounds bilaterally, which could be related to his CHF versus undiagnosed COPD or other pulmonary disorder. He was given 3 DuoNebs to assess for symptomatic improvement. I independently interpreted x-ray prior to the radiologist read and noted concern for worsening volume overload with a larger pleural effusion on the right than previous. Please see their read for final interpretation. Labs were obtained that demonstrated elevated BNP. Given x-ray as well as this, feel that he is likely volume overloaded. He was given 80 mg of IV Lasix. He also has a CO2 retainer with diminished breath sounds bilaterally, which could be related to CHF, however cannot exclude obstructive pulmonary disease. He was given 3 DuoNebs. This did seem to improve his aeration. At this time, patient is stable on his home oxygen. I do not feel that he requires admission for further workup and management of these things, as they can likely be managed on outpatient basis, however his is unable to take him home. She is unable to care for him given his significantly worsened debility. I had an indirect discussion with physical therapy and Occupational Therapy who evaluated the patient and drop recommendations for acute rehabilitation in the care home facility. I had indirect discussion with care management who is working on insurance approval to see if we can potentially place the patient from the emergency department. [facility], Dr. Nieves. <Esdras Nieves MD - Last Filed: 04/22/23 16:47> Vital Signs: 04/22/23 11:25 04/22/23 13:40 04/22/23 13:40 Temperature 98.1 F Temperature Source Oral Pulse Rate 70 70 Pulse Rate [Left] 75 Respiratory Rate 20 Blood Pressure Blood Pressure [Right Arm] 166/74 H Blood Pressure Mean Blood Pressure Mean [Right Arm] 104 Blood Pressure Source [Right Arm] Automatic Cuff Blood Pressure Position [Right Arm] Supine 02 Sat by Pulse Oximetry 99 Oxygen Delivery Method Oxygen Flow Rate (LPM) 04/22/23 11:31 04/22/23 12:01 04/22/23 13:31 Temperature Temperature Source Pulse Rate 69 71 52 L Pulse Rate [Left] Respiratory Rate 18 20 Blood Pressure 164/71 H 166/70 H 176/79 H Blood Pressure [Right Arm] Blood Pressure Mean 102 102 111 Blood Pressure Mean [Right Arm] Blood Pressure Source [Right Arm] Blood Pressure Position [Right Arm] 02 Sat by Pulse Oximetry 96 94 L 95 Oxygen Delivery Method Oxygen Flow Rate (LPM) 04/22/23 14:01 04/22/23 14:31 04/22/23 15:01 Temperature Temperature Source Pulse Rate 69 74 70 Pulse Rate [Left] Respiratory Rate 24 18 Blood Pressure 145/69 H 146/75 H 141/64 H Blood Pressure [Right Arm] Blood Pressure Mean 114 98 98 Blood Pressure Mean [Right Arm] Blood Pressure Source [Right Arm] Blood Pressure Position [Right Arm] 02 Sat by Pulse Oximetry 96 95 94 L Oxygen Delivery Method Nasal Cannula Oxygen Flow Rate (LPM) 2 04/22/23 15:31 Temperature Temperature Source Pulse Rate 74 Pulse Rate [Left] Respiratory Rate 18 Blood Pressure 138/55 L Blood Pressure [Right Arm] Blood Pressure Mean 82 Blood Pressure Mean [Right Arm] Blood Pressure Source [Right Arm] Blood Pressure Position [Right Arm] 02 Sat by Pulse Oximetry 92 L Oxygen Delivery Method Nasal Cannula Oxygen Flow Rate (LPM) 2 Lab Data Lab Results 04/22/23 11:27: VBG pH 7.36, VBG pCO2 71.1 H, VBG pO2 55.8 H, VBG HCO3 39.3 H, VBG Total CO2 41.4 H, VBG O2 Saturation 90.1 H, VBG Base Excess 13.8 H 04/22/23 12:07: SARS-CoV-2 (PCR) Not detected, Influenza A Untype (PCR) Not detected, Influenza Type B (PCR) Not detected 04/22/23 12:35: Sodium 139, Potassium 3.9, Chloride 92 L, Carbon Dioxide 41 H*, Anion Gap 9.9, BUN 9, Creatinine 0.60 L, Estimated Creat Clear 96, Estimated GFR 129, Est GFR ( Amer) 156, Glucose 109 H, Lactate 1.1, Calcium 9.1, Total Bilirubin 0.5, AST 30, ALT 20, Alkaline Phosphatase 65, NT-Pro-B Natriuret Pep 1160 H, Total Protein 6.9, Albumin 3.8, Globulin 3.1, Albumin/Globulin Ratio 1.2 04/22/23 12:50: WBC 7.7, RBC 4.46 L, Hgb 14.1, Hct 43.4, MCV 97.2 H, MCH 31.6 H, MCHC 32.5, RDW 13.3, Plt Count 183, MPV 8.3, Neut % (Auto) 65.9, Lymph % (Auto) 26.8, [place] % (Auto) 4.6, Eos % (Auto) 1.8, Baso % (Auto) 0.9, Neut # (Auto) 5.1, Lymph # (Auto) 2.1, [place] # (Auto) 0.4, Eos # (Auto) 0.1, Baso # (Auto) 0.1 Orders (Tests/Meds): ED MEDICATIONS Discontinued Medications Generic Name Dose Route Start Last Admin Trade Name Freq PRN Reason Stop Dose Admin Albuterol/Ipratropium 9 ml 04/22/23 12:17 04/22/23 13:40 Ipratropium/Albuterol 3 Ml Neb IH 04/22/23 12:18 9 ml ONCE ONE Administration Furosemide 80 mg 04/22/23 13:15 04/22/23 13:48 Furosemide 40mg/4ml Vial IV 04/22/23 13:16 80 mg ONCE ONE Administration ORDERS Category Date Time Status CT cervical spine wo con Stat Cat Scan 04/22/23 11:[address] head/brain wo con Stat Cat Scan 04/22/23 11:27 Completed XR chest portable Stat Exams 04/22/23 11:28 Completed Brain Natriuretic Peptide Stat Lab 04/22/23 12:35 Completed Complete Blood Count Auto Diff Stat Lab 04/22/23 12:50 Completed Comprehensive Metabolic Panel Stat Lab 04/22/23 12:35 Completed Lactic Acid Stat Lab 04/22/23 12:35 Completed Rapid PCR Covid and Flu A/B Stat Lab 04/22/23 12:07 Completed Venous Blood Gas Stat RT 04/22/23 11:27 Completed ECG initial Besson Routine Y 04/22/23 11:23 Completed Medical Decision Narrative: In summary, this patient is a 82-year-old male presenting to the Emergency Department for evaluation of nonproductive cough, general weakness, poor appetite, and concern that his is no longer able to care for him at home. Differential diagnoses considered include but are not limited to CHF exacerbation, COPD, pneumonia, respiratory failure. Ruling out the most morbid conditions drove assessment. It should be noted patient's history includes dementia, peripheral neuropathy, CHF, hypothyroidism, and obesity which may or may not be at goal therapy. This complicates all aspects of care by increasing patient's risk for morbidity. I reviewed patient's past medical records and noted previous admission for CHF exacerbation over a year ago. On exam, the patient is alert and conversational. He is obese with chronic general debility but is in no acute distress. He does have diminished breath sounds bilaterally and an increased oxygen requirement, though he is not in any respiratory distress. Workup included CBC, CMP, BNP, lactic acid, VBG, chest x-ray, and EKG. He has diminished breath sounds bilaterally, which could be related to his CHF versus undiagnosed COPD or other pulmonary disorder. He was given 3 DuoNebs to assess for symptomatic improvement. I independently interpreted x-ray prior to the radiologist read and noted concern for worsening volume overload with a larger pleural effusion on the right than previous. Please see their read for final interpretation. Labs were obtained that demonstrated elevated BNP. Given x-ray as well as this, feel that he is likely volume overloaded. He was given 80 mg of IV Lasix. He also has a CO2 retainer with diminished breath sounds bilaterally, which could be related to CHF, however cannot exclude obstructive pulmonary disease. He was given 3 DuoNebs. This did seem to improve his aeration. At this time, patient is stable on his home oxygen. I do not feel that he requires admission for further workup and management of these things, as they can likely be managed on outpatient basis, however his is unable to take him home. She is unable to care for him given his significantly worsened debility. I had an indirect discussion with physical therapy and Occupational Therapy who evaluated the patient and drop recommendations for acute rehabilitation in the care home facility. I had indirect discussion with care management who is working on insurance approval to see if we can potentially place the patient from the emergency department. [facility], Dr. Nieves. Lizbeth: I assume primary responsibility for this patient after signout from previous physician. Independently interpreted workup. Nonactionable CBC, patient in compensated chronic respiratory failure on VBG. Chemistry largely nonactionable. BNP elevated 1160, patient given Lasix for this. Also given DuoNebs with significant improvement. Case management saw patient, they were able to get patient placed at [facility]. I am agreeable to this plan. Because patient at baseline without signs or symptoms of clinical decompensation, deemed appropriate for discharge. Results were relayed to patient[] who voiced understanding and were agreeable to outpatient management and follow up. At the time of discharge the patient was hemodynamically stable, tolerating PO, and mobilizing appropriately. Sent home with xanax to bridge to PCP follow up to prevent withdrawal. Critical Care <Ju Weaver DO - Last Filed: 04/22/23 14:57> Critical Care Time Critical Care Time: No
[2023-04-22 12:12] LABS: Coronavirus 19, PCR Not Detected (NotDetected); Influenza A, PCR Not Detected (NotDetected); Influenza B, PCR Not Detected (NotDetected)
--- NOTE | 2023-04-22 12:46 | PC.NURSE ---
Cindy Monroe with care management in with pt
[2023-04-22 12:48] LABS: Chloride 92 mmol/L (98-107); Potassium 3.9 mmoL/L (3.5-5.1); Sodium 139 mmol/L (136-145)
[2023-04-22 12:51] LABS: Alanine Aminotransferase 20 U/L (12-78); Albumin Level 3.8 g/dl (3.5-5.0); Albumin/Globulin Ratio 1.2 (1.1-1.8); Alkaline Phosphatase 65 U/L (38-126); Aspartate Amino Transferase 30 U/L (17-59); Bilirubin,Total 0.5 mg/dl (0.2-1.3); Blood Urea Nitrogen 9 mg/dl (9-20); Calcium 9.1 mg/dl (8.4-10.2); Creatinine Clearance Estimated 96 mL/min (50-200); Estimated Glomerular Filt Rate 129 ml/min (>60); GFR (African American) 156 ML/MIN (>60); Globulin 3.1 g/dL (1.3-3.2); Glucose 109 mg/dl (74-100); Total Protein,Serum 6.9 g/dl (6.3-8.2)
[2023-04-22 12:52] LABS: Lactic Acid 1.1 mmol/L (0.7-2.1)
[2023-04-22 12:59] LABS: Anion Gap 9.9 mEq/L (5-15); Carbon Dioxide 41 mmol/L (22.0-30.0)
[2023-04-22 13:00] LABS: NT Pro Brain Natriuretic Pep. 1160 pg/mL (0-450)
[2023-04-22 13:20] LABS: Basophils # 0.1 K/mm3 (0-0.2); Basophils % 0.9 % (0.1-2.0); Eosinophils # 0.1 K/mm3 (0.0-0.4); Eosinophils % 1.8 % (0.1-12.0); Hematocrit 43.4 % (42.0-52.0); Hemoglobin 14.1 g/dL (14.1-18.0); Lymphocytes # 2.1 K/mm3 (0.7-4.5); Lymphocytes % 26.8 % (10-50); Mean Corpuscular HGB Conc 32.5 g/dL (31.8-35.4); Mean Corpuscular Hemoglobin 31.6 pg (27.0-31.2); Mean Corpuscular Volume 97.2 fl (80-94); Mean Platelet Volume 8.3 fl (7.4-10.4); Monocytes # 0.4 K/mm3 (0.1-1.0); Monocytes % 4.6 % (1.7-9.3); Neutrophils # 5.1 K/mm3 (1.8-7.8); Neutrophils % 65.9 % (37.0-80.0); Platelet Count 183 K/mm3 (142-424); Red Blood Count 4.46 M/mm3 (4.60-6.20); Red Cell Distribution Width 13.3 % (11.5-17.5); White Blood Count 7.7 K/mm3 (4.8-10.8)
[2023-04-22 13:26] LABS: VBG Base Excess 13.8 mmol/L (-2.4-2.3); VBG HCO3 39.3 mmol/L (23-30); VBG Oxygen Saturation 90.1 % (50-70); VBG PCO2 71.1 mmol/L (35-51); VBG PH 7.36 mmol/L (7.31-7.41); VBG PO2 55.8 mmol/L (28-40); VBG Total CO2 41.4 mmol/L (23-27)
[2023-04-22] MEDS: IPRATROPIUM/ALBUTEROL 3 ML NEB 9 ML IH (13:40)
[2023-04-22] MEDS: FUROSEMIDE 40MG/4ML VIAL 80 MG IV (13:48)
--- NOTE | 2023-04-22 14:00 | HMH.OTEV ---
OT Inpatient Evaluation Rehab OT IP Evaluation Start: 04/22/23 13:00 Freq: ONCE Status: Active Protocol: Document 04/22/23 13:53 [facility] (Rec: 04/22/23 13:59 [facility] [id number]) Rehab OT IP Assessment Subjective History Pt oriented x 3 on arrival. Pt agreeable to engage in therapy evaluation. Pt's present during evaluation. Prior to being in the hosptial , pt required assistance with all ADLS such as dressing and bathing. Pt reports he was able to feed himself. Pt was dependent upon for completion of all IADLs. Pt used a wheelchair most of the time, but also required assistance to transfer to and from wheelchair. History and physical ER documentation: This patient is an 82-year-old male with a history of obesity, CHF, dementia, peripheral neuropathy, and hypothyroidism presenting to the emergency department for evaluation with concern for nonproductive cough. This has been going on for approximately a week. Patient is also had decreased appetite and diarrhea. Patient typically requires 2 L nasal cannula at home, however EMS had increased to 3 L nasal cannula for hypoxia on room air. They noted diminished breath sounds, so they gave a DuoNeb with some improvement in his oxygenation . No other concerns noted, such as fevers, chills, chest pain, abdominal pain, or other concerns. Patient did slip out of his wheelchair when transferring today, but no traumatic injuries noted from the fall. No head injury or loss of consciousness. He was well prior to this and denies any injuries as a result of this and states that is not why he is here. His denies any known diagnoses of COPD. She notes that they came in today seeking help because she is no longer able to care for him at home. He is not able to help with transfers/care at home anymore , and she does not have further support. Subjective I needed a lot of help. Objective Patient Orientation Person,Place,Birthday Right Upper Extremity Gross ROM Min Limitation <25% Left Upper Extremity Gross ROM Min Limitation <25% Shoulder ROM Limitations Muscle Weakness Elbow ROM Limitations Muscle Weakness Wrist Limitations of Range of Motion Muscle Weakness Bed Mobility bed mobility-scooting,bed mobility - supine/sit Assist Level Maximum x 2 (75% assist) Rehab OT IP prob,goals,plan Problems Date of Evaluation: 04/22/23 OT IP Problems Bed Mobility,Transfers,Balance ,Self care,Safety Rehab Potential Rehab Potential Good Equipment Needs Assistive Devices Rolling / Wheeled Walker, Wheelchair Plan OT intervention Plan Bed Mobility,Transfers,Balance ,Self care,Safety,Therapeutic Exercise OT Plan Frequency Daily Duration LOS Discharge Goals Bed Mobility Ability Assistance x1 Sit to Stand Chair Transfer Ability Moderate x 2 (50% assist) Chair Transfer Ability Moderate x 2 (50% assist) Chair Transfer Technique Stand Step Pivot Chair Transfer Assistive Devices Rolling Walker Feeding Ability Assist with Tray Set Up Lower Body Dressing Ability Moderate Assistance Upper Body Dressing Ability Minimal Assistance Bathing Ability Moderate Assistance Performing Toilet Hygiene Ability Moderate Assistance Overall Commode/Toilet Transfer Ability Moderate Assistance Commode/Toilet Transfer Technique Stand Pivot Oral Care Assist Minimal Assistance Decrease in Endurance Yes Discharge Plan OT Discharge Plan Pt would benefit most from short term rehab at SNF following discharge from hospital. Continued skilled therapy is important in order for patient to improve strength, safety, endurance, ADL independence, and functional transfers to reach PLOF. Eval Complexity Eval Charge Codes 45880 - Moderate Complexity PHYSICIAN CERTIFICATION: I certify the specified therapy services for Hieu Grover are required, authorized, and reviewed every 30 days.
--- NOTE | 2023-04-22 14:10 | HMH.PTEV ---
Physical Therapy Evaluation Rehab PT IP Evaluation Start: 04/22/23 12:34 Freq: ONCE Status: Active Protocol: Document 04/22/23 13:55 [facility] (Rec: 04/22/23 14:09 [facility] [id number]) Subjective/History History History Per ER documentation: Pt arrives via EMS. EMS reports the pt was transferring from the bed to the wheelchair and slipped out of the chair down to the floor. pt denies any pain or LOC. Pts states he is not here for a fall. Pts states for the past week he has had a nonproductive cough, decreased appetite and diarrhea. pt is on 3L NC upon arrival, his baseline at home is 2L NC. pt has a hx of dementia, HTN, and neuropathy. Subjective Subjective Pt agreeable to Pt evaluation. where am I going now? Pt reports he is w/c bound and requires assistance to get in and out of w/c to bed. Pt reports he hasn't stood in a long time. New diagnosis of cancer in past 12 No months? Rehab PT IP Eval Objective Appearance Patient Behavior Appropriate Speech Pattern Clear Ambulation Patient Able to Ambulate No Transfers Bed Transfer Ability Total/Dependent (100%) Rehab PT IP prob,goals,plan Problems Date of Evaluation: 04/22/23 PT IP Problems Bed Mobility,Transfers,Balance Discharge Goals Bed Transfer Ability Maximum x 2 (75% assist) Discharge Plan PT Discharge Plan Pt not safe to return home at current functional level. Pt is DEP for Bed mobility and unable to stand d/t weakness. PT recommending d/t to short- term rehabilitation/placement when deemed medically necessary. Eval Complexity Eval Charge Codes 75350 - High Complexity PHYSICIAN CERTIFICATION: I certify the specified therapy services for Hieu Grover are required, authorized, and reviewed every 30 days.
--- NOTE | 2023-04-22 15:41 | CARE MANAGER ---
Addendum entered by Arely Monroe RN 04/22/23 16:36: [facility] has accepted. Steffanie was updated with the facility information and patient is good to be transferred to them. Original Note: Consulted for possible placement. Patient had a functional decline today. He is deemed medically stable by the ER doctor, but is in need or rehab according to PT/OT evaluations. Spoke with and patient who state [facility], or one of the facilities in [place] would be ok to send information to. Spoke with Hellen ([phone]) at [facility] who states she can facilitate a rapid review and possibly get the patient to placement from the ER. Provided information to [facility] who states he doesn't qualify for rapid review, but will go on and review him and we will have an authorization today. [facility] denied patient. [facility] accepted patient, but in the meantime the patient's son called and spoke with his mother and I and they decided they would prefer [facility]. I contacted Ju and sent his information. Awaiting her response. Steffanie called back with auth number [id number] 04/22/23 through 04/26/23. Phone number [phone] fax number [phone].
--- NOTE | 2023-04-22 16:38 | PC.NURSE ---
REPORT CALLED EL AT [facility]
--- NOTE | 2023-04-22 18:13 | PC.NURSE ---
pt and family updated at this time
== END 2023-04-22 18:57 | disposition home or self-care (01) ==
PROVIDERS: Emergency Medicine; Emergency Provider Emergency Medicine
DX: I50.9 Heart failure, unspecified (principal); R53.1 Weakness; R05.9 Cough, unspecified; R63.0 Anorexia; R19.7 Diarrhea, unspecified; F03.90 Unspecified dementia, unspecified severity, without behavioral disturbance, psychotic disturbance, mood disturbance, and anxiety; G62.9 Polyneuropathy, unspecified; E03.9 Hypothyroidism, unspecified; J90 Pleural effusion, not elsewhere classified; R00.1 Bradycardia, unspecified; W05.0XXA Fall from non-moving wheelchair, initial encounter
CPT/HCPCS: 70450; 71045; 72125; 80053; 82803; 83605; 83880; 85025; 87636; 93005; 96374; 99285